=== PATIENT | female | born 1930 | race Two or more races ===

== ENCOUNTER 2017-11-07 14:27 | Emergency (ER) | payer MEDICARE, MEDICAID ==
--- NOTE | 2017-11-07 14:55 | ER Document Report ---
ED Medical Screen (RME) - General Chief Complaint: Chest Pain > 30 Stated Complaint: CHEST PAIN Time Seen by Provider: 11/07/17 14:49 Notes: RAPID MEDICAL EVALUATION DISCLOSURE I have seen this patient as part of a Rapid Medical Evaluation and, if applicable, placed any initially appropriate orders. The patient will be seen and fully evaluated, including a full history and physical exam, by a provider ( in Main ED or Fast Track) when a room becomes available. 87-year-old female here with complaints of midsternal nonradiating chest pain ongoing for the past 1 week intermittently. She has also had shortness of breath but no diaphoresis lightheadedness nausea vomiting. Symptoms are worse with lying flat but not with exertion or breathing deep. She does have a history of NM several years ago but the symptoms do not feel the same, she reports. EXAM CTAB RRR TRAVEL OUTSIDE OF THE [place] IN LAST 30 DAYS: No - Related Data Allergies/Adverse Reactions: No Known Allergies Allergy (Verified 11/07/17 14:30) Past Medical History - Social History Frequency of alcohol use: None Renal/ Medical History: Denies: Hx Peritoneal Dialysis Physical Exam - Vital signs Vitals: Temp Pulse Resp BP Pulse Ox 98.8 F 77 20 132/60 H 92 11/07/17 14:44 11/07/17 14:44 11/07/17 14:44 11/07/17 14:44 11/07/17 14:44 Course - Vital Signs Vital signs: Temp Pulse Resp BP Pulse Ox 98.8 F 77 20 132/60 H 92 11/07/17 14:44 11/07/17 14:44 11/07/17 14:44 11/07/17 14:44 11/07/17 14:44 Doctor's Discharge - Discharge Referrals: AUGUSTUS GARCES MD [Primary Care Provider] - Follow up as needed
[2017-11-07 15:35] LABS: ANION GAP 17 (5-19); BLOOD UREA NITROGEN 13 mg/dL (7-20); CALCIUM 9.5 mg/dL (8.4-10.2); CARBON DIOXIDE 24 mmol/L (22-30); CHLORIDE 91 mmol/L (98-107); GLUCOSE 108 mg/dL (75-110); POTASSIUM 3.9 mmol/L (3.6-5.0); SODIUM 131.9 mmol/L (137-145)
[2017-11-07 15:41] LABS: ABSOLUTE EOSINOPHILS # (AUTO) 0.2 10^3/uL (0.0-0.6); ABSOLUTE LYMPHOCYTES (AUTO) 1.6 10^3/uL (0.5-4.7); ABSOLUTE MONOCYTES (AUTO) 0.8 10^3/uL (0.1-1.4); ABSOLUTE NEUT (AUTO) 5.2 10^3/uL (1.7-8.2); BASOPHILS % (AUTO) 0.6 % (0-2); EOSINOPHILS % (AUTO) 2.1 % (0-6); HEMATOCRIT 40.8 % (36.0-47.0); HEMOGLOBIN 14.1 g/dL (12.0-15.5); LYMPHOCYTES % (AUTO) 20.5 % (13-45); MEAN CORPUSCULAR HEMOGLOBIN 30.7 pg (27.0-33.4); MEAN CORPUSCULAR HGB CONC 34.6 g/dL (32.0-36.0); MEAN CORPUSCULAR VOLUME 89 fl (80-97); MONOCYTES % (AUTO) 9.9 % (3-13); PLATELET COUNT 218 10^3/uL (150-450); RED CELL DISTRIBUTION WIDTH 13.2 % (11.5-14.0); SEGMENTED NEUTROPHILS % (AUTO) 66.9 % (42-78); TOTAL CELLS COUNTED % (AUTO) 100 %; WHITE BLOOD COUNT 7.8 10^3/uL (4.0-10.5)
--- NOTE | 2017-11-07 16:04 | RADIOLOGY REPORT (SQ) ---
EXAM DESCRIPTION: CHEST 2 VIEWS COMPLETED DATE/TIME: 11/07/2017 3:54 pm REASON FOR STUDY: CP SOB COMPARISON: Chest films 11/21/2010, 11/18/2010, 04/18/2008 EXAM PARAMETERS: NUMBER OF VIEWS: two views TECHNIQUE: Digital Frontal and Lateral radiographic views of the chest acquired. RADIATION DOSE: NA LIMITATIONS: none FINDINGS: LUNGS AND PLEURA: No opacities, masses or pneumothorax. No pleural effusion. MEDIASTINUM AND HILAR STRUCTURES: No masses or contour abnormalities. HEART AND VASCULAR STRUCTURES: Moderate cardiomegaly. BONES: No acute findings. HARDWARE: None in the chest. OTHER: No other significant finding. IMPRESSION: Moderate cardiomegaly. No acute findings TECHNICAL DOCUMENTATION: JOB ID: [id number] [employer]- All Rights Reserved Reading location - IP/workstation name: [email or web address]
--- NOTE | 2017-11-07 18:43 | ER Document Report ---
ED General - General Mode of Arrival: Ambulatory Information source: Patient, Relative TRAVEL OUTSIDE OF THE [place] IN LAST 30 DAYS: No <JUNIOR HANKS - Last Filed: 11/08/17 00:41> <KRISTAL SAEZ - Last Filed: 11/08/17 00:44> - General Chief Complaint: Chest Pain > 30 Stated Complaint: CHEST PAIN Time Seen by Provider: 11/07/17 14:49 Notes: Patient is an 87 year old female with HTN, diabetes type 2, high cholesterol presents to the emergency department accompanied by granddaughter complaining of chest pain. Granddaughter states the patient would frequently lie and say she is no longer in pain to avoid coming to the hospital. With JENELLE at bedside , patient states she has had chest pain for approximately 1 week but is currently not in any pain. She describes her previous chest pain as something simple that is exacerbated when supine. Granddaughter states the patient takes Prilosec daily. Patient is adamant and states she is ready to go home. Granddaughter states the patient has an appointment with Dr. Vitale on 2017. Granddaughter reports the patient has had a heart attack but patient denies this. (JUNIOR HANKS) - Related Data Allergies/Adverse Reactions: No Known Allergies Allergy (Verified 11/07/17 14:30) Past Medical History - General Information source: Patient - Social History Smoking Status: Never Smoker Frequency of alcohol use: None Family History: Reviewed & Not Pertinent Patient has suicidal ideation: No Patient has homicidal ideation: No - Past Medical History Cardiac Medical History: Reports: Hx Hypercholesterolemia, Hx Hypertension Endocrine Medical History: Reports: Hx Diabetes Mellitus Type 2 <JUNIOR HANKS - Last Filed: 11/08/17 00:41> Review of Systems - Review of Systems Constitutional: No symptoms reported EENT: No symptoms reported Cardiovascular: See HPI, Chest pain Respiratory: No symptoms reported Gastrointestinal: No symptoms reported Genitourinary: No symptoms reported Female Genitourinary: No symptoms reported Musculoskeletal: No symptoms reported Skin: No symptoms reported Hematologic/Lymphatic: No symptoms reported Neurological/Psychological: No symptoms reported -: Yes All other systems reviewed and negative <JUNIOR HANKS - Last Filed: 11/08/17 00:41> Physical Exam <JUNIOR HANKS - Last Filed: 11/08/17 00:41> <KRISTAL SAEZ - Last Filed: 11/08/17 00:44> - Vital signs Vitals: Temp Pulse Resp BP Pulse Ox 98.8 F 77 20 132/60 H 92 11/07/17 14:44 11/07/17 14:44 11/07/17 14:44 11/07/17 14:44 11/07/17 14:44 - Notes Notes: GENERAL: Alert, interacts well. No acute distress. HEAD: Normocephalic, atraumatic. EYES: Pupils equal, round, and reactive to light. Extraocular movements intact. ENT: Oral mucosa moist, tongue midline. NECK: Full range of motion. Supple. Trachea midline. LUNGS: Clear to auscultation bilaterally, no wheezes, rales, or rhonchi. No respiratory distress. HEART: Regular rate and rhythm. No murmurs, gallops, or rubs. ABDOMEN: Soft, non-tender. Non-distended. Bowel sounds present in all 4 quadrants. EXTREMITIES: Moves all 4 extremities spontaneously. No edema, radial and dorsalis pedis pulses 2/4 bilaterally. No cyanosis. NEUROLOGICAL: Alert and oriented x3. Normal speech. PSYCH: Normal affect, normal mood. SKIN: Warm, dry, normal turgor. No rashes or lesions noted. (JUNIOR HANKS) Course - Laboratory Result Diagrams: 11/07/17 15:02 11/07/17 15:02 <JUNIOR HANKS - Last Filed: 11/08/17 00:41> - Laboratory Result Diagrams: 11/07/17 15:02 11/07/17 15:02 <KRISTAL SAEZ - Last Filed: 11/08/17 00:44> - Re-evaluation Re-evalutation: 11/07/17 19:16 CBC unremarkable, CMP, BMP shows low sodium at 131.9 otherwise unremarkable, initial troponin is negative, chest x-ray shows no acute process, EKG is nonischemic. Discussed with patient and granddaughter the importance of performing a full cardiac rule out with 3 sets of troponins and a possible stress test. Patient adamantly refuses, states that she is 86 years old and feels like she is going to soon anyway, does not want to stay in the hospital. Discussed with the patient that there are various interventions that could be performed should we discover that this cardiac related but patient still refuses to stay, refuses a further blood test, refuses to have another troponin performed. And requests to be discharged home. Patient will be discharged to home. (KRISTAL SAEZ) - Vital Signs Vital signs: Temp Pulse Resp BP Pulse Ox 98.0 F 79 22 H 127/68 H 91 L 11/07/17 19:23 11/07/17 19:23 11/07/17 17:03 11/07/17 19:23 11/07/17 19:23 - Laboratory Laboratory results interpreted by me: 11/07/17 15:02 Sodium 131.9 L Chloride 91 L - EKG Interpretation by Me Additional EKG results interpreted by me: 11/07/17 19:16 EKG shows sinus rhythm at a rate of 73, first-degree AV block, no ST segment elevations or depressions, there is poor R-wave progression indicative of possible old WI 8 though patient denies this, T-wave flattening very nonspecific in V2 and V3 per my interpretation. (KRISTAL SAEZ) Discharge <JUNIOR HANKS - Last Filed: 11/08/17 00:41> <KRISTAL SAEZ - Last Filed: 11/08/17 00:44> - Discharge Clinical Impression: Chest pain of uncertain etiology Condition: Stable Disposition: HOME, SELF-CARE Additional Instructions: Today your initial blood work for heart attack was negative. Your EKG shows signs of a old heart attack in the remote past but does not show any signs of new heart attack. You have chosen not to have a second set of blood work performed to completely rule out a heart attack. You stated that you are okay with the possibility of having heart attack and the possibility of dying. Please follow-up with Dr. Vitale as an outpatient. Even though I do not see any sign of a heart attack right now it is still possible your pain is coming from your heart. There is further testing he can do as an outpatient including a stress test to help further determine whether or not any of this pain is truly coming from your heart. Referrals: AUGUSTUS GARCES MD [Primary Care Provider] - Follow up as needed Scribe Attestation: 11/08/17 00:44 I personally performed the services described in the documentation, reviewed and edited the documentation which was dictated to the scribe in my presence, and it accurately records my words and actions. (KRISTAL SAEZ) Scribe Documentation - Scribe Written by Atilio:: Atilio Block, 11/07/2017 19:10 acting as scribe for :: Gloria <JUNIOR HANKS - Last Filed: 11/08/17 00:41>
[2017-11-07 19:30] VITALS: BP 127/68
--- NOTE | 2017-11-07 22:21 | EKG REPORT ---
SEVERITY:- ABNORMAL ECG - SINUS RHYTHM FIRST DEGREE AV BLOCK BORDERLINE T ABNORMALITIES, ANTERIOR LEADS : Confirmed by: Hue Swift 07-Nov-2017 22:20:37
== END 2017-11-07 19:30 | disposition home or self-care (01) ==
LOC: ER 14:27
DX: R07.9 Chest pain, unspecified (principal); I10 Essential (primary) hypertension; E11.9 Type 2 diabetes mellitus without complications; E78.00 Pure hypercholesterolemia, unspecified
CPT/HCPCS: 36415; 71046; 80048; 84484; 85025; 93005; 93010; 99285

== ENCOUNTER → 2017-12-14 | Outpatient (CLI) | payer MEDICARE, MEDICAID ==
[~2017-12-14] MED LIST: CAFFEINE CITRATED INJ/PF 60 MG/3 ML SDV ONE; REGADENOSON INJ 0.4 MG/5 ML DISP.SYRIN IV ONE
--- NOTE | 2017-12-14 19:22 | DRAGON STRESS TEST REPORT ---
INTRAVENOUS LEXISCAN CARDIOLITE STRESS TEST USING SINGLE PHOTON EMMISION COMPUTERIZED TOMOGRAPHIC. DATE OF PROCEDURE: December 14, 2017, INDICATION : Chest pain CARDIAC RISK FACTORS: Diabetes, hypertension, dyslipidemia RESTING EKG: Sinus rhythm, left axis deviation, nonprogression of R-wave anterior precordial lead, possible RVH. STRESS EKG: No significant ST segment changes noted with LexiScan bolus REASON FOR TERMINATION: Protocol. PROCEDURE REPORT: Baseline heart rate 75 beats per minute with blood pressure of 122/68. Patient had no significant complaints. Patient was bolused with Lexiscan 0.4 mg intravenously followed by saline bolus. Heart rate at 2 minutes post bolus 86 with a blood pressure of 117/61. 3 minutes post bolus heart rate 85 with blood pressure of 113/57. No significant EKG changes were noted. Patient had no significant complaints during the procedure or postprocedure. CONCLUSIONS: Normal EKG and hemodynamic response to IV LexiScan. NUCLEAR DATA: At rest the patient was given 11.66 millicuries of technetium 99 sestamibi injected intravenously. As per protocol rest gated SPECT images were obtained. On day of stress test, the patient was given intravenous LexiScan at a dose of 0.4 mg in 5 mL intravenously, followed by flush with normal saline. Subsequently the stress dose of 34.7 millicuries of technetium 99 sestamibi was injected intravenously. As per protocol stress gated images were obtained. NUCLEAR INTERPRETATION: Both raw and processed data were used for interpretation. Visual, qualitative, computer-generated quantitative data was used. There was good myocardial uptake of technetium compound. Motion artifact and soft tissue attenuations were noted. Increased visceral uptake was noted. No definitive areas of transient perfusion defect noted, No definitive areas of fixed perfusion defect or scars noted. EKG gated imaging showed LV EF at 82 %, rest and stress gated EF similar visually. T. I D. ratio was 0.94. Lung heart ratio noted to be within normal limits 0.30. No significant extracardiac and abnormal radiotracer activities were noted. RV free wall uptake was noted to be increased.. IMPRESSION: Also refer to comments under nuclear interpretation. Also test results needs to be interpreted in the context of pretest probability. 1. No definitive areas of transient perfusion defect noted. 2. There is no definitive scintigraphic evidence of myocardial infarction/scar. 3. EKG gated imaging shows left ventricular ejection fraction of approx. 82 %. RV free wall uptake was noted to be increased consistent with RVH. 4. Clinical correlation requested as occasionally single vessel disease or balanced ischemia could be missed. In approximately 10% of the cases Lexiscan may not cause adequate vasodilatory stress. RECOMMENDATIONS: Aggressive risk factor modification and medical management. Further evaluation may be needed if continued symptoms or other high risk indicators are noted on clinical evaluation. Close cardiology follow-up is also recommended. Clinical correlation with echocardiogram derived ejection fraction. Inability to exercise by itself can lead to increased cardiovascular event risks. Consider cardiology consultation and or follow-up if clinically indicated. I am available for cardiology evaluation and consultation if requested by the branding machine tender, unless patient already has a doll wigs hackler. Dr. Tamanna Swift. MRCP Board certified in cardiology and sleep medicine. Board certified in nuclear cardiology, adult echocardiography. CARLY
== END ==
LOC: RAD 08:11
PROVIDERS: ATTEND Internal Medicine Cardiovascular Disease
DX: R07.9 Chest pain, unspecified (principal); E11.9 Type 2 diabetes mellitus without complications; I10 Essential (primary) hypertension; E78.5 Hyperlipidemia, unspecified
CPT/HCPCS: 93017; 78452; A9500; J2785; J0706; Q9969

== ENCOUNTER → 2018-06-13 | Outpatient (CLI) | payer MEDICARE, MEDICAID ==
[~2018-06-13] MED LIST changes: +AMINOPHYLLINE INJ/PF 250 MG/10 ML SDV IV ONE; -CAFFEINE CITRATED INJ/PF 60 MG/3 ML SDV ONE
--- NOTE | 2018-06-13 17:24 | DRAGON STRESS TEST REPORT ---
Intravenous Lexiscan Cardiolite stress test using single photon emmision computerized tomography. Date of procedure: 06/13/2018. Ordering Provider: Dr. Dameon Vitale .Patient's status: Outpatient Indication: Chest pain. Coronary risk factors: Age, diabetes, hypertension, and dyslipidemia. Resting EKG: Sinus Rhythm. Within Normal Limits. Stress EKG: No changes of ischemia. The patient after the injection of Lexiscan developed shortness of breath with wheezing. The patient was given Aminophyllin 50 mg IV push slowly, and subsequently another 50 mg IV Aminophyllin was repeated. After this the patient had no further shortness of breath, and no wheezing. She had no chest pain or discomfort, and there were no arrhythmias seen. She was hemodynamically stable. Reason for termination: Protocol. Conclusions: Normal EKG and hemodynamic response to IV Lexiscan. Nuclear data: At rest the patient was given 10.82 millicuries of technetium 99m sestamibi injected intravenously. As per protocol rest non gated SPECT images were obtained. Subsequently the patient was given intravenous Lexiscan at a dose of 0.4 mg in 5 mL intravenously, followed by flush with normal saline. Subsequently the stress dose of 31.8 millicuries of technetium 99m sestamibi was injected intravenously. As per protocol stress gated images were obtained. Nuclear interpretation: Review of images showed that all segments of the myocardium had normal perfusion at rest, and normal perfusion post stress with IV Lexiscan. All segments of the myocardium had normal motion, contraction, and thickening by gated study. T. I D. ratio was normal at 1.07. There is no transient ischemic dilatation of the left ventricle. Computer read rest, and stress left ventricular ejection fraction were 78 %, and 79 %, respectively. Conclusion: 1. There is no scintigraphic evidence of Lexiscan induced myocardial ischemia. 2. There is no scintigraphic evidence of myocardial infarction/scar. Recommendations: Aggressive risk factor modification, and treating the underlying co- morbidities. MTDD
== END ==
LOC: RAD 08:39
PROVIDERS: ATTEND Internal Medicine Cardiovascular Disease
DX: R07.9 Chest pain, unspecified (principal); R06.00 Dyspnea, unspecified
CPT/HCPCS: 93017; 78452; A9500; J2785; J0280; Q9969

== ENCOUNTER 2018-10-07 23:41 | Inpatient (IN) | payer MEDICARE, MEDICAID ==
[2018-10-07] MEDS ORDERED: IPRATROPIUM/ALBUTEROL 0.5-2.5 MG/3 ML AMPUL NEB ONE ×2 (23:43→23:55)
[2018-10-07] MEDS ORDERED: MAGNESIUM SULFATE/D5W 2 GM/200 ML RTUPB IV ONE (23:45)
[2018-10-07] MEDS ORDERED: METHYLPREDNISOLONE INJ 125 MG/2 ML SDV ONE (23:45)
[2018-10-07] MEDS ORDERED: METHYLPREDNISOLONE INJ 125 MG/2 ML SDV IV ONE (23:55)
[2018-10-07] MEDS ORDERED: MAGNESIUM SULFATE/D5W 1 GM/100 ML RTUPB IV ONE (23:55)
[2018-10-08] MEDS ORDERED: ACETAMINOPHEN 650 MG SUPP.RECT PR ONE (00:01)
--- NOTE | 2018-10-08 00:19 | ER Document Report ---
ED General - General Chief Complaint: Breathing Difficulty Stated Complaint: PROBLEMS BREATHING Time Seen by Provider: 10/07/18 23:53 Primary Care Provider: KI ROMERO MD [Primary Care Provider] - Follow up as needed Notes: Patient is a pleasant 87-year-old female presents with complaint of difficulty breathing. Patient's daughter says that when she got home she saw the patient was working hard to breathe and therefore brought her to the ER. She does have history of asthma. She did play bingo last night and the daughter says that people smoke a lot in the [place] and sometimes this will activate the patient's asthma. She has never been admitted to the hospital for asthma. She has not had any fevers at home. No other complaints at this time. Primary care physician is Dr. Ortiz Kim. Upon arrival to the ED her O2 saturations are initially in the mid 80s and that is with nasal cannula was placed on her as soon as she was brought back to the trauma bay. TRAVEL OUTSIDE OF THE [place] IN LAST 30 DAYS: No - Related Data Allergies/Adverse Reactions: No Known Allergies Allergy (Verified 11/07/17 14:30) Past Medical History - Social History Smoking Status: Never Smoker Frequency of alcohol use: None Drug Abuse: None Family History: Reviewed & Not Pertinent - Past Medical History Cardiac Medical History: Reports: Hx Hypercholesterolemia, Hx Hypertension Endocrine Medical History: Reports: Hx Diabetes Mellitus Type 2 Renal/ Medical History: Denies: Hx Peritoneal Dialysis Review of Systems - Review of Systems Notes: My Normal Review Basic REVIEW OF SYSTEMS: CONSTITUTIONAL : Denies fever, chills, or sweats. Denies recent illness. EENT: Denies eye, ear, throat, or mouth pain or symptoms. Denies nasal or sinus congestion. RESPIRATORY: Difficulty breathing. GASTROINTESTINAL: Denies abdominal pain. Denies nausea, vomiting, or diarrhea. GENITOURINARY: Is incontinent of urine and therefore chronically wears a adult diaper. MUSCULOSKELETAL: Denies neck or back pain or joint pain or swelling. SKIN: Denies rash or skin lesions. HEMATOLOGIC : Denies easy bruising or bleeding. NEUROLOGICAL: Denies altered mental status or loss of consciousness. ALL OTHER SYSTEMS REVIEWED AND NEGATIVE. Physical Exam - Vital signs Vitals: Resp Pulse Ox 22 H 91 L 10/07/18 23:46 10/07/18 23:46 - Notes Notes: General Appearance: Well nourished, alert, cooperative, moderate to severe acute distress, no obvious discomfort. Vitals: reviewed, See vital signs table. Eyes: PERRL, EOMI, Conjuctiva clear Mouth: No decreasd moisture Lungs: Scattered wheezing. Some rales. Significant amount of accessory muscle use. Tachypnea. Heart: tachycardiac rate, Regular rythm, No murmur, no rub Abdomen: Normal BS, soft, No rigidity, No abdominal tenderness, No guarding, no rebound Extremities: good pulses in all extremities, no swelling or tenderness in the extremities, no edema. Skin: warm, dry, appropriate color, no rash Neuro: speech clear, oriented x 3, normal affect, responds appropriately to questions. Course - Re-evaluation Re-evalutation: 10/08/18 00:58 On reevaluation patient's wheezing is now gone. She has still some rales type sounds her lung price. This likely is insurance claim representative of pneumonia. She does also have some edema in her extremities and therefore some fluid overload could play a role. I have not given her IV fluids because of this as the patient already has some signs of some fluid overload and therefore give her IV fluids will likely not be of benefit to her. Her blood pressure is normal. Her heart rate is much improved. 10/08/18 01:53 Patient's chest x-ray did not show obvious pneumonia. I still think this possibility as a cause of fever. I want to get the urinalysis results back firs t to determine exactly what antibiotic regimen start her on. Family is refusing patient to receive a straight cath therefore has not yet gotten the urine. Therefore we will go and cover her with broad-spectrum antibiotics until we see exactly what is the underlying cause of her infection. Respiratory status remains improved. 10/08/18 04:07 Patient continues look well. Respiratory status is much improved. She likely will be able to be weaned off the BiPAP soon. She does have a UTI which would explain the fever. I again did not push IV fluids on her being that her heart rate is improved, her blood pressure is normal, and she does show some signs of fluid overload and that she has some rales in the lung price as well as significant edema in her lower extremities. I did speak with Dr. Garcia, hospitalist, who agrees to evaluate the patient for admission. Dictation of this chart was performed using voice recognition software; therefore, there may be some unintended grammatical errors. - Vital Signs Vital signs: Temp Pulse Resp BP Pulse Ox 17 110/57 L 94 10/08/18 03:30 10/08/18 03:30 10/08/18 03:30 - Laboratory Result Diagrams: 10/08/18 00:10 10/08/18 00:10 Laboratory results interpreted by me: 10/08/18 10/08/18 10/08/18 00:10 00:10 00:10 WBC 14.0 H Seg Neutrophils % 86.7 H Lymphocytes % 10.8 L Monocytes % 2.2 L Absolute Neutrophils 12.1 H Sodium 130.3 L Potassium 3.5 L Chloride 91 L Glucose 177 H Lactic Acid 4.7 H Urine Protein Urine Blood Urine Nitrite Ur Leukocyte Esterase 10/08/18 02:35 WBC Seg Neutrophils % Lymphocytes % Monocytes % Absolute Neutrophils Sodium Potassium Chloride Glucose Lactic Acid Urine Protein 100 H Urine Blood MODERATE H Urine Nitrite POSITIVE H Ur Leukocyte Esterase LARGE H - EKG Interpretation by Me Additional EKG results interpreted by me: 10/08/18 00:18 EKG is reviewed and interpreted by me. EKG shows sinus tachycardia with rate of [address] segment elevation or depression. No ischemic T wave inversions. VT interval, QRS duration, QT intervals are within normal range. No old EKG available for comparison. Critical Care Note - Critical Care Note Total time excluding time spent on procedures (mins): 35 Comments: Critical care time for the patient including time spent in procedures proximal me 35 minutes due to frequent re-evaluations due to being on BiPAP, respiratory distress on initial examination, and management of high fever and potential sepsis. Discharge - Discharge Clinical Impression: Respiratory distress, Lactic acidosis UTI (urinary tract infection) Qualifiers: Urinary tract infection type: site unspecified Hematuria presence: with hematuria Qualified Code(s): N39.0 - Urinary tract infection, site not specified; R31.9 - Hematuria, unspecified Fever Qualifiers: Fever type: unspecified Qualified Code(s): R50.9 - Fever, unspecified Condition: Stable Disposition: ADMITTED INPATIENT Admitting Provider: Radha (Hospitalist) Unit Admitted: IMCU Referrals: KI ROMERO MD [Primary Care Provider] - Follow up as needed
[2018-10-08 00:31] LABS: VENOUS BLOOD BASE EXCESS 1.7 mmol/L; VENOUS BLOOD HCO3 26.5 mmol/L (20-32); VENOUS BLOOD PCO2 42.3 mmHg (35-63); VENOUS BLOOD PH 7.42 (7.30-7.42)
[2018-10-08 00:47] LABS: ABSOLUTE LYMPHOCYTES (AUTO) 1.5 10^3/uL (0.5-4.7); ABSOLUTE MONOCYTES (AUTO) 0.3 10^3/uL (0.1-1.4); ABSOLUTE NEUT (AUTO) 12.1 10^3/uL (1.7-8.2); BASOPHILS % (AUTO) 0.2 % (0-2); EOSINOPHILS % (AUTO) 0.1 % (0-6); HEMATOCRIT 36.8 % (36.0-47.0); HEMOGLOBIN 12.3 g/dL (12.0-15.5); LYMPHOCYTES % (AUTO) 10.8 % (13-45); MEAN CORPUSCULAR HGB CONC 33.4 g/dL (32.0-36.0); MEAN CORPUSCULAR VOLUME 90 fl (80-97); MONOCYTES % (AUTO) 2.2 % (3-13); PLATELET COUNT 180 10^3/uL (150-450); RED CELL DISTRIBUTION WIDTH 13.1 % (11.5-14.0); SEGMENTED NEUTROPHILS % (AUTO) 86.7 % (42-78); TOTAL CELLS COUNTED % (AUTO) 100 %
[2018-10-08 00:51] LABS: ANION GAP 14 (5-19); BLOOD UREA NITROGEN 10 mg/dL (7-20); CARBON DIOXIDE 25 mmol/L (22-30); CHLORIDE 91 mmol/L (98-107); GLUCOSE 177 mg/dL (75-110); POTASSIUM 3.5 mmol/L (3.6-5.0); SODIUM 130.3 mmol/L (137-145)
--- NOTE | 2018-10-08 01:16 | RADIOLOGY REPORT (SQ) ---
EXAM DESCRIPTION: XR CHEST 1 VIEW COMPLETED DATE/TME: 10/07/2018 23:54 CLINICAL HISTORY: 87 years, Female, dyspnea COMPARISON: 11/07/2017 chest NUMBER OF VIEWS: 1 TECHNIQUE: Portable chest LIMITATIONS: None. FINDINGS: Cardiomegaly with atheromatous change thoracic aorta. Osteopenia. No pneumothorax. Lungs are clear IMPRESSION: Cardiomegaly. Lungs are clear copyright 2011 [employer]- All Rights Reserved
[2018-10-08] MEDS ORDERED: VANCOMYCIN HCL INJ 1000 MG VIAL IV ONE (01:52)
[2018-10-08] MEDS ORDERED: PIPERACILLIN/TAZOBACTAM 4.5 GM VIAL IV ONE (01:53)
[2018-10-08] MEDS ORDERED: NICOTINE 21 MG/24 HR PATCH.TD24 TD ONE (02:30)
[2018-10-08 03:32] LABS: APPEARANCE,URINE CLOUDY; BILIRUBIN,URINE NEGATIVE (NEGATIVE); COLOR,URINE YELLOW; GLUCOSE, URINE NEGATIVE (NEGATIVE); KETONES,URINE NEGATIVE (NEGATIVE); LEUKOCYTE ESTERASE,URINE LARGE (NEGATIVE); NITRITE,URINE POSITIVE (NEGATIVE); PROTEIN,URINE 100 mg/dL (NEGATIVE); URINE SPECIFIC GRAVITY 1.011; UROBILINOGEN,URINE NEGATIVE mg/dL (<2.0)
[2018-10-08] MEDS ORDERED: POTASSI CL 20 MEQ/50 ML RIDER 20 MEQ/50 ML RTUPB IV ONE (04:11)
[2018-10-08] MEDS ORDERED: RINGERS SOLUTION,LACTATED 1,000 ML IV PRN (04:44)
[2018-10-08] MEDS ORDERED: MAG HYDROX/AL HYDROX/SIMETH SUSP 30 ML UDCUP PO PRN (04:44)
[2018-10-08] MEDS ORDERED: ONDANSETRON HCL INJ/PF 4 MG/2 ML SDV IV PRN (04:44)
[2018-10-08] MEDS ORDERED: MAGNESIUM HYDROXIDE SUSP 30 ML UDCUP PO PRN (04:44)
[2018-10-08] MEDS ORDERED: MORPHINE SULFATE 10 MG/ML INJ IV PRN (04:51)
[2018-10-08] MEDS ORDERED: DEXTROSE 50%-WATER 25 GM/50 ML DISP.SYRIN IV PRN ×2 (04:51)
[2018-10-08] MEDS ORDERED: ACETAMINOPHEN 325 MG TABLET PO PRN (04:51)
[2018-10-08] MEDS ORDERED: LEVALBUTEROL HCL NEB 0.63 MG/3 ML AMPUL NEB PRN (04:51)
[2018-10-08] MEDS ORDERED: GLUCAGON,HUMAN RECOMB 1 MG INJ IM PRN (04:51)
[2018-10-08] MEDS ORDERED: DEXTROSE 40% GEL 15 GM TUBE PO PRN ×2 (04:51)
[2018-10-08] MEDS ORDERED: MEROPENEM 1 GM VIAL IV SCH (06:00)
[2018-10-08 06:06] LABS: FREE T3 2.35 pg/mL (2.77-5.27); FREE T4 (FREE THYROXINE) 0.47 ng/dL (0.78-2.19)
[2018-10-08 06:20] LABS: ARTERIAL BLOOD BASE EXCESS 0.6 mmol/L; ARTERIAL BLOOD FIO2 45%; ARTERIAL BLOOD HCO3 24.4 mmol/L (20-24); ARTERIAL BLOOD O2 SATURATION 96.5 % (94-98); ARTERIAL BLOOD PCO2 36.7 mmHg (35-45); ARTERIAL BLOOD PH 7.44 (7.35-7.45); ARTERIAL BLOOD TOTAL CO2 25.5 mmol/L (21-25)
--- NOTE | 2018-10-08 06:23 | PDOC H&P ---
History of Present Illness Admission Date/PCP: 10/08/18 04:16 Ortiz Carl MD Patient complains of: Dyspnea History of Present Illness: ROXI PUCKETT is a 87 year old female who presented to the emergency room with acute dyspnea. She (patient speaks very little German and requests to use her daughter as an remote sensing advisor/story relator) and her daughter relate that she played bingo on the night prior to her admission and was exposed to a lot of cigarette smoke in the [place]. In the late evening hours she was discovered at home by her daughter, who is returning from work, with severe dyspnea, wheezing and markedly increased work of breathing. Her daughter subsequently brought her to the emergency room for treatment. She admits a history of asthma but has never required hospitalization for this. She denies any accompanying or associated signs or symptoms. She admits prior similar symptoms with asthma attacks but never this severe. She has not identified any additional aggravati ng or ameliorating factors for her acute dyspnea. In the emergency room she was found to have hypoxia and marked increased work of breathing and was subsequently placed on BiPAP. Her chest x-ray was negative but her urinalysis revealed severe pyuria. Patient was noted to have fever of 104.3 F and a 14,000 white blood cell count. She was subsequently admitted to the hospital for further evaluation and treatment. Past Medical History Cardiac Medical History: Reports: Hyperlipidema, Hypertension Denies: Atrial Fibrillation, Congestive Heart Failure, Coronary Artery Disease, Myocardial Infarction Pulmonary Medical History: Reports: Asthma Denies: Chronic Obstructive Pulmonary Disease (COPD), Respiratory Failure EENT Medical History: Denies: Cataracts, Ears - Hearing aids Neurological Medical History: Denies: Hemorrhagic CVA, Ischemic CVA, Multiple Sclerosis, Seizures Endocrine Medical History: Reports: Diabetes Mellitus Type 2 Denies: Diabetes Mellitus Type 1, Hyperthyroidism, Hypothyroidism Renal/ Medical History: Denies: Chronic Kidney Disease, Nephrolithiasis Malignancy Medical History: Reports: None GI Medical History: Denies: Cirrhosis, Hepatitis Musculoskeltal Medical History: Denies: Arthritis, Gout Skin Medical History: Denies: Eczema, Psoriasis Psychiatric Medical History: Denies: Alcohol Dependency, Substance Abuse, Tobacco Dependency Traumatic Medical History: Reports: None Hematology: Denies: Anemia, Bleeding Tendencies Infectious Medical History: Reports: None Past Surgical History Past Surgical History: Reports: None Social History Information Source: Patient, Relative - Daughter Lives with: Family Smoking Status: Never Smoker Frequency of Alcohol Use: None Hx Recreational Drug Use: No Drugs: None Hx Prescription Drug Abuse: No - Advance Directive Resuscitation Status: Full Code Surrogate healthcare decision maker:: Laura Brown Family History Family History: DM, Hypertension Parental Family History Reviewed: Yes Children Family History Reviewed: No Sibling(s) Family History Reviewed.: Yes Medication/Allergy Allergies/Adverse Reactions: No Known Allergies Allergy (Verified 11/07/17 14:30) Review of Systems Constitutional: ABSENT: chills, fever(s) Eyes: ABSENT: visual disturbances, other - IP Ears: ABSENT: hearing changes, other - Ear pain Nose, Mouth, and Throat: ABSENT: headache(s), mouth pain, sore throat Cardiovascular: PRESENT: as per HPI, dyspnea on exertion. ABSENT: chest pain, edema, orthropnea, palpitations Respiratory: PRESENT: dyspnea, other - Wheezing and increased work of breathing. ABSENT: cough Gastrointestinal: ABSENT: abdominal pain, constipation, diarrhea, nausea, vomiting Genitourinary: ABSENT: dysuria, hematuria Musculoskeletal: ABSENT: back pain, joint swelling, muscle weakness Integumentary: ABSENT: pruritus, rash Neurological: ABSENT: confusion, convulsions, focal weakness, memory loss, syncope Psychiatric: ABSENT: anxiety, depression Endocrine: ABSENT: cold intolerance, heat intolerance Hematologic/Lymphatic: ABSENT: easy bleeding, easy bruising Physical Exam Vital Signs: Temp Pulse Resp BP Pulse Ox 16 110/57 L 93 10/08/18 04:26 10/08/18 03:30 10/08/18 04:26 Intake & Output 10/06/18 10/07/18 10/08/18 23:59 23:59 23:59 Intake Total 100 Balance 100 Weight 70.4 kg General appearance: PRESENT: cooperative, obese, other - On BiPAP Head exam: PRESENT: atraumatic, normocephalic Eye exam: ABSENT: conjunctival injection, scleral icterus Ear exam: PRESENT: normal external ear exam. ABSENT: bleeding, drainage Mouth exam: PRESENT: dry mucosa, neck supple Neck exam: ABSENT: JVD, thyromegaly, tracheal deviation Respiratory exam: PRESENT: symmetrical, wheezes - Mild expiratory wheezes in all price, other - On BiPAP. ABSENT: rales Cardiovascular exam: PRESENT: RRR. ABSENT: clicks, gallop, rubs Pulses: PRESENT: normal radial pulses, normal dorsalis pedis pul Vascular exam: PRESENT: normal capillary refill. ABSENT: pallor GI/Abdominal exam: PRESENT: normal bowel sounds, soft Rectal exam: PRESENT: deferred Extremities exam: ABSENT: joint swelling, pedal edema Musculoskeletal exam: ABSENT: deformity, dislocation Neurological exam: PRESENT: alert, oriented to person, oriented to place, oriented to time, oriented to situation, CN II-XII grossly intact. ABSENT: motor sensory deficit Psychiatric exam: PRESENT: appropriate affect, normal mood Skin exam: PRESENT: dry, intact, warm. ABSENT: jaundice, rash, urticaria Results Laboratory Results: 10/08/18 00:10 10/08/18 00:10 10/08/18 10/08/18 10/08/18 00:10 00:10 00:10 WBC 14.0 H RBC 4.10 Hgb 12.3 Hct 36.8 MCV 90 MCH 30.0 MCHC 33.4 RDW 13.1 Plt Count 180 Seg Neutrophils % 86.7 H Lymphocytes % 10.8 L Monocytes % 2.2 L Eosinophils % 0.1 Basophils % 0.2 Absolute Neutrophils 12.1 H Absolute Lymphocytes 1.5 Absolute Monocytes 0.3 Absolute Eosinophils 0.0 Absolute Basophils 0.0 VBG pH 7.42 VBG pCO2 42.3 VBG HCO3 26.5 VBG Base Excess 1.7 Sodium 130.3 L Potassium 3.5 L Chloride 91 L Carbon Dioxide 25 Anion Gap 14 BUN 10 Creatinine 0.86 Est GFR ( Amer) > 60 Est GFR (Non-Af Amer) > 60 Glucose 177 H Lactic Acid Calcium 9.0 Urine Color Urine Appearance Urine pH Ur Specific [place] Urine Protein Urine Glucose (UA) Urine Ketones Urine Blood Urine Nitrite Ur Leukocyte Esterase Urine WBC (Auto) Urine RBC (Auto) 10/08/18 10/08/18 00:10 02:35 WBC RBC Hgb Hct MCV MCH MCHC RDW Plt Count Seg Neutrophils % Lymphocytes % Monocytes % Eosinophils % Basophils % Absolute Neutrophils Absolute Lymphocytes Absolute Monocytes Absolute Eosinophils Absolute Basophils VBG pH VBG pCO2 VBG HCO3 VBG Base Excess Sodium Potassium Chloride Carbon Dioxide Anion Gap BUN Creatinine Est GFR ( Amer) Est GFR (Non-Af Amer) Glucose Lactic Acid 4.7 H Calcium Urine Color YELLOW Urine Appearance CLOUDY Urine pH 6.0 Ur Specific [place] 1.011 Urine Protein 100 H Urine Glucose (UA) NEGATIVE Urine Ketones NEGATIVE Urine Blood MODERATE H Urine Nitrite POSITIVE H Ur Leukocyte Esterase LARGE H Urine WBC (Auto) >182 Urine RBC (Auto) 9 Impressions: Chest X-Ray 10/07/18 23:54 IMPRESSION: Cardiomegaly. Lungs are clear copyright 2011 [employer]- All Rights Reserved Assessment and Plan - Diagnosis (1) Asthma with status asthmaticus in adult Qualifiers: Asthma severity: severe Asthma persistence: persistent Qualified Code(s): J45.52 - Severe persistent asthma with status asthmaticus Is this a current diagnosis for this admission?: Yes Plan: Patient is admitted to [facility] and will be treated with an aggressive pulmonary toilet utilizing nebulized Xopenex, Atrovent and Pulmicort. She will also receive IV Solu-Medrol and supplemental oxygen via noninvasive airway pressure devices as needed. She will be monitored with daily CBCs, metabolic profiles and magnesium levels. (2) Acute respiratory failure with hypoxia Is this a current diagnosis for this admission?: Yes Plan: Patient be treated with noninvasive airway pressure support devices and supplemental oxygen as required to maintain an adequate O2 saturation. Her O2 sat will be monitored very closely in [facility]. (3) SIRS (systemic inflammatory response syndrome) Is this a current diagnosis for this admission?: Yes Plan: Patient has a fever, elevated lactic acid and an elevated white blood count and an identified source of infection (urinary tract) thus meeting Sirs criteria. She will have serial lactic acids performed as the initial level was 4.4 in the emergency room. She will be observed closely for any and all signs of sepsis. Blood cultures and a urine culture are pending at the present time. (4) Pyuria Is this a current diagnosis for this admission?: Yes Plan: Patient will be treated empirically with IV meropenem as she is considered to be possibly septic. Urine culture and blood cultures are pending. The patient's fever will be treated with Tylenol 650 mg p.o. every 4 hours as needed temperature greater than 101 F. - Time Time Spent with patient: 25-34 minutes Medications reviewed and adjusted accordingly: Yes Anticipated discharge: Home - Inpatient Certification Based on my medical assessment, after consideration of the patient's comorbi dities, presenting symptoms, or acuity I expect that the services needed warrant INPATIENT care.: Yes I certify that my determination is in accordance with my understanding of Medicare's requirements for reasonable and necessary INPATIENT services [42 CFR 412.3e].: Yes Medical Necessity: Significant Comorbidiites Make Outpatient Treatment Too Risky, Need Close Monitoring Due to Risk of Patient Decompensation, Need For IV Fluids, Need For Continuous Telemetry Monitoring, Need for Nebulizer Therapy and Monitoring of Response, Need for IV Antibiotics, Risk of Complication if Not Cared For in Hospital
--- NOTE | 2018-10-08 06:26 | ADVANCED CARE ---
- Diagnosis (1) Asthma with status asthmaticus in adult Diagnosis Current: Yes (2) Acute respiratory failure with hypoxia Diagnosis Current: Yes (3) SIRS (systemic inflammatory response syndrome) Diagnosis Current: Yes (4) Pyuria Diagnosis Current: Yes Attendance: Patient, her daughter Laura Brown and myself Resuscitation Status: Full Code Discussion: The patient wishes to be a full code for her hospital admission in the event of a cardiac arrest or respiratory arrest. The patient wishes to have Laura Brown her daughter acted as her designated surrogate medical decision maker. Care Planning Goals: 1. Patient is made a full code per her request 2. Laura Brown is entered into the medical record as the patient's designated surrogate medical decision maker. Document(s) Completed: The following changes are made to the medical record and medical orders via EMR entry: 1. Patient is made a full code per her request. 2. Laura Brown is the patient's designated surrogate medical decision maker. Time Spent: 15 minutes
--- NOTE | 2018-10-08 06:40 | EKG REPORT ---
SEVERITY:- ABNORMAL ECG - SINUS TACHYCARDIA BORDERLINE RIGHT AXIS DEVIATION NONSPECIFIC T ABNORMALITIES, ANT-LAT LEADS FIRST DEGREE AVB OLE ANTERIOR IA : Confirmed by: Nicholas Murray MD 08-Oct-2018 06:40:23
[2018-10-08] MEDS: METHYLPREDNISOLONE INJ 40 MG/1 ML SDV IV SCH ×3 (07:14→22:45)
[2018-10-08] MEDS: HEPARIN SOD (PORCINE) 5,000 UNIT/ML 1 ML SYRINGE SUBCUT SCH ×3 (07:14→22:44)
[2018-10-08] MEDS ORDERED: MEROPENEM 1 GM VIAL ONE (07:22)
[2018-10-08] MEDS: MEROPENEM 1 GM in NORMAL SALINE 50 ML IV SCH ×2 (07:42→15:20)
[2018-10-08] MEDS: LEVALBUTEROL HCL NEB 1.25 MG/3 ML AMPUL NEB SCH ×2 (08:09→16:05)
[2018-10-08] MEDS: IPRATROPIUM BROMIDE 0.02% NEB 0.5 MG/2.5 ML AMPUL NEB SCH ×2 (08:09→16:05)
[2018-10-08] MEDS: BUDESONIDE NEB 0.5 MG/2 ML AMPUL NEB SCH ×2 (08:09→20:03)
[2018-10-08] MEDS ORDERED: FAMOTIDINE INJ/PF 20 MG/2 ML SDV IV SCH (10:00)
[2018-10-08] MEDS ORDERED: DOCUSATE SODIUM 100 MG/10 ML UDC PO SCH (10:00)
[2018-10-08 12:06] LABS: ANION GAP 16 (5-19); BLOOD UREA NITROGEN 13 mg/dL (7-20); CALCIUM 9.1 mg/dL (8.4-10.2); CARBON DIOXIDE 23 mmol/L (22-30); CHLORIDE 94 mmol/L (98-107); GLUCOSE 282 mg/dL (75-110); POTASSIUM 3.4 mmol/L (3.6-5.0); SODIUM 133.1 mmol/L (137-145)
[2018-10-08] MEDS ORDERED: CEFTRIAXONE 1 GM/D5W RTU 1 GM/50 ML RTUPB IV SCH (16:00)
--- NOTE | 2018-10-08 17:08 | RADIOLOGY REPORT (SQ) ---
EXAM DESCRIPTION: KUB/ABDOMEN (SINGLE VIEW) COMPLETED DATE/TIME: 10/08/2018 4:58 pm REASON FOR STUDY: abdominal pain COMPARISON: None. NUMBER OF VIEWS: One view. TECHNIQUE: Supine radiographic image of the abdomen acquired. LIMITATIONS: None. FINDINGS: BOWEL GAS PATTERN: Normal bowel gas pattern. No dilated loops. CALCIFICATIONS: No suspicious calcifications. SOFT TISSUES: No gross mass or suggestion of organomegaly. HARDWARE: Krishnan catheter in the bladder BONES: No acute fracture. No worrisome bone lesions. OTHER: No other significant finding. IMPRESSION: NO RADIOGRAPHIC EVIDENCE FOR ACUTE ABDOMINAL DISEASE. TECHNICAL DOCUMENTATION: JOB ID: [id number] [employer]- All Rights Reserved Reading location - IP/workstation name: [email or web address]
[2018-10-08] MEDS: DOCUSATE SODIUM 100 MG CAPSULE PO SCH (17:20)
[2018-10-08] MEDS ORDERED: CEFTRIAXONE SODIUM 1,000 MG in DEXTROSE 5%-WATER 50 ML IV SCH (18:00)
[2018-10-08] MEDS ORDERED: POTASSIUM CHLORIDE 10 MEQ CAPSULE.ER PO ONE (22:00)
[2018-10-08] MEDS ORDERED: INSULIN LISPRO 100 UNIT/ML 3 ML VIAL SUBCUT ONE (22:40)
[2018-10-08] MEDS: FAMOTIDINE 20 MG TABLET PO SCH (22:45)
[2018-10-09] MEDS: IPRATROPIUM BROMIDE 0.02% NEB 0.5 MG/2.5 ML AMPUL NEB SCH ×4 (00:04→23:50)
[2018-10-09] MEDS: LEVALBUTEROL HCL NEB 1.25 MG/3 ML AMPUL NEB SCH ×4 (00:04→23:51)
[2018-10-09] MEDS: HEPARIN SOD (PORCINE) 5,000 UNIT/ML 1 ML SYRINGE SUBCUT SCH ×3 (05:54→21:31)
[2018-10-09 07:17] LABS: HEMATOCRIT 35.4 % (36.0-47.0); HEMOGLOBIN 11.9 g/dL (12.0-15.5); MEAN CORPUSCULAR HEMOGLOBIN 30.3 pg (27.0-33.4); MEAN CORPUSCULAR HGB CONC 33.7 g/dL (32.0-36.0); MEAN CORPUSCULAR VOLUME 90 fl (80-97); PLATELET COUNT 134 10^3/uL (150-450); RED BLOOD COUNT 3.93 10^6/uL (3.72-5.28); RED CELL DISTRIBUTION WIDTH 13.5 % (11.5-14.0); WHITE BLOOD COUNT 19.8 10^3/uL (4.0-10.5)
[2018-10-09 07:36] LABS: ANION GAP 9 (5-19); BLOOD UREA NITROGEN 18 mg/dL (7-20); CALCIUM 8.9 mg/dL (8.4-10.2); CARBON DIOXIDE 27 mmol/L (22-30); CHLORIDE 102 mmol/L (98-107); CHOLESTEROL 119.08 mg/dL (0-200); GLUCOSE 262 mg/dL (75-110); POTASSIUM 4.2 mmol/L (3.6-5.0); SODIUM 138.2 mmol/L (137-145); TRIGLYCERIDES 73 mg/dL (<150)
[2018-10-09 07:48] LABS: DIRECT LDL 51 mg/dL (<100)
[2018-10-09 08:27] LABS: ABSOLUTE LYMPHOCYTES# (MANUAL) 1.6 10^3/uL (0.5-4.7); ABSOLUTE MONOCYTES # (MANUAL) 0.2 10^3/uL (0.1-1.4); BASOPHILS % (MANUAL) 0 % (0-2); EOSINOPHILS % (MANUAL) 0 % (0-6); LYMPHOCYTES % (MANUAL) 5 % (13-45); MONOCYTES % (MANUAL) 1 % (3-13); SEGMENTED NEUTROPHILS % (MAN) 91 % (42-78); TOTAL CELLS COUNTED 100
[2018-10-09 08:29] LABS: PLATELET COMMENT DECREASED; RBC MORPHOLOGY COMMENT NORMO-CYTIC/CHROMIC
[2018-10-09] MEDS: INSULIN LISPRO 100 UNIT/ML 3 ML VIAL SUBCUT SCH ×4 (08:30→21:29)
[2018-10-09] MEDS: BUDESONIDE NEB 0.5 MG/2 ML AMPUL NEB SCH ×2 (08:54→20:24)
[2018-10-09] MEDS: DOCUSATE SODIUM 100 MG CAPSULE PO SCH ×2 (09:20→18:16)
[2018-10-09] MEDS: FAMOTIDINE 20 MG TABLET PO SCH ×2 (09:20→21:29)
[2018-10-09] MEDS ORDERED: GLUCAGON,HUMAN RECOMB 1 MG INJ IM PRN (10:38)
[2018-10-09] MEDS ORDERED: DEXTROSE 40% GEL 15 GM TUBE PO PRN ×2 (10:38)
[2018-10-09] MEDS ORDERED: DEXTROSE 50%-WATER 25 GM/50 ML DISP.SYRIN IV PRN ×2 (10:38)
[2018-10-09] MEDS: PIPERACILLIN SODIUM/TAZOBACTAM 3.375 GM in NORMAL SALINE 100 ML IV SCH ×3 (13:00→23:16)
[2018-10-09] MEDS: INSULIN GLARGINE,HUM.REC.ANLOG 1,000 UNIT/10 ML VIAL SUBCUT SCH (13:01)
--- NOTE | 2018-10-09 15:23 | PDOC PROGRESS REPORT ---
Subjective Progress Note for:: 10/09/18 Subjective:: ROXI PUCKETT is a 87 year old female who presented to the emergency room with acute dyspnea. She (patient speaks very little [place] and requests to use her daughter as an air moving technician/story relator) and her daughter relate that she played bingo on the night prior to her admission and was exposed to a lot of cigarette smoke [place]. In the late evening hours she was discovered at home by her daughter, who is returning from work, with severe dyspnea, whe ezing and markedly increased work of breathing. Her daughter subsequently brought her to the emergency room for treatment. She admits a history of asthma but has never required hospitalization for this. She denies any accompanying or associated signs or symptoms. She admits prior similar symptoms with asthma attacks but never this severe. She has not identified any additional aggravating or ameliorating factors for her acute dyspnea. In the emergency room she was found to have hypoxia and marked increased work of breathing and was subsequently placed on BiPAP. Her chest x-ray was negative but her urinalysis revealed severe pyuria. Patient was noted to have fever of 104.3 F and a 14,000 white blood cell count. She was subsequently admitted to the hospital for further evaluation and treatment. 10/09/2018. No acute events overnight. Reason For Visit: SIRS,UTI,STATUS ASTHMATICUS,ACUTE RESPIRATORY Physical Exam Vital Signs: Temp Pulse Resp BP Pulse Ox 97.5 F 79 18 126/63 H 95 10/09/18 11:22 10/09/18 14:00 10/09/18 11:22 10/09/18 11:22 10/09/18 11:22 Intake & Output 10/08/18 10/09/18 10/10/18 06:59 06:59 06:59 Intake Total 100 2187 Output Total 2250 Balance 100 -63 Weight 70.4 kg 69.9 kg General appearance: PRESENT: obese Head exam: PRESENT: atraumatic, normocephalic Respiratory exam: PRESENT: clear to auscultation marko. ABSENT: rales, rhonchi, wheezes Cardiovascular exam: PRESENT: RRR. ABSENT: diastolic murmur, rubs, systolic m urmur GI/Abdominal exam: PRESENT: normal bowel sounds, soft. ABSENT: distended, guarding, mass, organolmegaly, rebound, tenderness Extremities exam: PRESENT: full ROM. ABSENT: calf tenderness, clubbing, pedal edema Neurological exam: PRESENT: alert, awake, oriented to person, oriented to place, oriented to time, CN II-XII grossly intact. ABSENT: motor sensory deficit Results Laboratory Results: 10/09/18 06:15 10/09/18 06:15 10/09/18 10/09/18 06:15 06:15 WBC 19.8 H RBC 3.93 Hgb 11.9 L Hct 35.4 L MCV 90 MCH 30.3 MCHC 33.7 RDW 13.5 Plt Count 134 L Seg Neutrophils % Not Reportable Lymphocytes % Not Reportable Monocytes % Not Reportable Eosinophils % Not Reportable Basophils % Not Reportable Absolute Neutrophils Not Reportable Absolute Lymphocytes Not Reportable Absolute Monocytes Not Reportable Absolute Eosinophils Not Reportable Absolute Basophils Not Reportable Sodium 138.2 Potassium 4.2 Chloride 102 Carbon Dioxide 27 Anion Gap 9 BUN 18 Creatinine 0.68 Est GFR ( Amer) > 60 Est GFR (Non-Af Amer) > 60 Glucose 262 H Calcium 8.9 Magnesium 2.5 H Triglycerides 73 Cholesterol 119.08 LDL Cholesterol Direct 51 VLDL Cholesterol 15.0 HDL Cholesterol 60 Impressions: Chest X-Ray 10/07/18 23:54 IMPRESSION: Cardiomegaly. Lungs are clear copyright 2011 [employer]- All Rights Reserved KUB X-Ray 10/08/18 00:00 IMPRESSION: NO RADIOGRAPHIC EVIDENCE FOR ACUTE ABDOMINAL DISEASE. Assessment and Plan - Diagnosis (1) SIRS (systemic inflammatory response syndrome) Is this a current diagnosis for this admission?: Yes Plan: Improving. Likely due to UTI and gram-negative bacteremia. 10/09/2018: SBP 804106, T-max 97.5, HR 70s, RR 1820, FiO2 9195 2 L NC. WBC 19.8, hemoglobin 11.9, platelets 134, sodium 133.2, potassium 4.2, bicarb 27, creatinine 0.6, FBG 262, Day 3 IV antibiotics. Day 2 of IV Zosyn. Received 2 days of IV vancomycin. DC'd on 10/08/2018. Give 1 days of IV ceftriaxone. (2) Acute respiratory failure with hypoxia Is this a current diagnosis for this admission?: Yes Plan: Improving. Likely due to underlying SIRSs and asthma exacerbation. 09/08/2018: SBP 144992, T-max 97.5, HR 70s, RR 1820, FiO2 9195 2 L NC. Continue supplemental oxygen, duo nebs, BiPAP as needed, IV steroids, IV antibiotics, LABA/LAMA (3) UTI (urinary tract infection) Qualifiers: Urinary tract infection type: site unspecified Hematuria presence: with hematuria Qualified Code(s): N39.0 - Urinary tract infection, site not specified; R31.9 - Hematuria, unspecified Is this a current diagnosis for this admission?: Yes (4) Gram-negative bacteremia Is this a current diagnosis for this admission?: Yes Plan: Patient growing gram-negative rods in the urine and blood. Pending sensitivity. Day 3 IV antibiotics. Day 2 of IV Zosyn. Received 2 days of IV vancomycin. DC'd on 10/08/2018. Received 1 day of IV ceftriaxone. Continue empiric IV antibiotics, follow-up cultures. (5) Hyperlipidemia Is this a current diagnosis for this admission?: No Plan: Continue statins. Diet and lifestyle modification. (6) Diabetes mellitus type 2 in obese Is this a current diagnosis for this admission?: No Plan: Controlled. Hemoglobin A1c 6.9. Hold metformin. Diabetic diet, sliding scale insulin, long-acting insulin, pre- meal insulin. Adjust dosage as needed. Start metformin on discharge. Outpatient PCP follow-up. (7) CAD (coronary artery disease) Is this a current diagnosis for this admission?: No Plan: Denies any anginal pain. Continue antiplatelets, YOU, beta-blockers, statins. Outpatient PCP follow-up. (8) HTN (hypertension) Is this a current diagnosis for this admission?: No Plan: Normotensive. Initially patient came and hypotensive due to SIRS. Monitor vitals, continue ARB, beta blockers. Restart home meds gradually as needed. Adjust dose as needed. Outpatient PCP follow-up. (9) Hypothyroidism Is this a current diagnosis for this admission?: No Plan: TSH 9.45, T3 0.47, T4 2.35 Mild elevated TSH, most likely due to acute illness. Continue levothyroxine. Patient will need a TSH rechecked as outpatient in 4-6 weeks.
[2018-10-09] MEDS: CLOPIDOGREL BISULFATE 75 MG TABLET PO SCH (16:37)
[2018-10-09] MEDS: ATORVASTATIN CALCIUM 10 MG TABLET PO SCH (21:29)
[2018-10-09] MEDS ORDERED: (PENDING PHARMACY ID) (Lovastatin [Lovastatin] 40 MG) PO SCH (22:00)
[2018-10-10] MEDS: HEPARIN SOD (PORCINE) 5,000 UNIT/ML 1 ML SYRINGE SUBCUT SCH ×3 (05:37→21:33)
[2018-10-10] MEDS: LEVOTHYROXINE SODIUM 0.1 MG TABLET PO SCH (05:39)
[2018-10-10] MEDS: PIPERACILLIN SODIUM/TAZOBACTAM 3.375 GM in NORMAL SALINE 100 ML IV SCH ×4 (05:39→23:26)
[2018-10-10] MEDS ORDERED: (PENDING PHARMACY ID) (Atenolol [Tenormin] 25 MG) PO SCH (08:00)
[2018-10-10] MEDS: IPRATROPIUM BROMIDE 0.02% NEB 0.5 MG/2.5 ML AMPUL NEB SCH ×2 (08:01→16:39)
[2018-10-10] MEDS: BUDESONIDE NEB 0.5 MG/2 ML AMPUL NEB SCH ×2 (08:01→20:47)
[2018-10-10] MEDS: LEVALBUTEROL HCL NEB 1.25 MG/3 ML AMPUL NEB SCH ×2 (08:01→16:39)
[2018-10-10] MEDS: INSULIN LISPRO 100 UNIT/ML 3 ML VIAL SUBCUT SCH ×4 (08:47→21:39)
[2018-10-10] MEDS: INSULIN GLARGINE,HUM.REC.ANLOG 1,000 UNIT/10 ML VIAL SUBCUT SCH (08:47)
[2018-10-10] MEDS: ATENOLOL 50 MG TABLET PO SCH (08:53)
[2018-10-10] MEDS: PREDNISONE 20 MG TABLET PO SCH (09:44)
[2018-10-10] MEDS: CLOPIDOGREL BISULFATE 75 MG TABLET PO SCH (09:44)
[2018-10-10] MEDS: DOCUSATE SODIUM 100 MG CAPSULE PO SCH ×2 (09:44→17:09)
[2018-10-10] MEDS: FAMOTIDINE 20 MG TABLET PO SCH ×2 (09:44→21:33)
[2018-10-10] MEDS: LOSARTAN POTASSIUM 50 MG TABLET PO SCH (09:44)
[2018-10-10] MEDS ORDERED: (PENDING PHARMACY ID) (Irbesartan [Avapro] 150 MG) PO SCH (10:00)
[2018-10-10 10:03] LABS: HEMATOCRIT 36.4 % (36.0-47.0); HEMOGLOBIN 12.3 g/dL (12.0-15.5); MEAN CORPUSCULAR HEMOGLOBIN 30.2 pg (27.0-33.4); MEAN CORPUSCULAR HGB CONC 33.7 g/dL (32.0-36.0); MEAN CORPUSCULAR VOLUME 90 fl (80-97); PLATELET COUNT 150 10^3/uL (150-450); RED BLOOD COUNT 4.05 10^6/uL (3.72-5.28); RED CELL DISTRIBUTION WIDTH 13.5 % (11.5-14.0); WHITE BLOOD COUNT 14.4 10^3/uL (4.0-10.5)
[2018-10-10 10:19] LABS: ABSOLUTE LYMPHOCYTES# (MANUAL) 1.3 10^3/uL (0.5-4.7); ABSOLUTE MONOCYTES # (MANUAL) 0.1 10^3/uL (0.1-1.4); BASOPHILS % (MANUAL) 0 % (0-2); EOSINOPHILS % (MANUAL) 0 % (0-6); LYMPHOCYTES % (MANUAL) 9 % (13-45); MONOCYTES % (MANUAL) 1 % (3-13); SEGMENTED NEUTROPHILS % (MAN) 90 % (42-78); TOTAL CELLS COUNTED 100
[2018-10-10 10:22] LABS: PLATELET COMMENT ADEQUATE; RBC MORPHOLOGY COMMENT NORMO-CYTIC/CHROMIC
[2018-10-10 10:28] LABS: ANION GAP 7 (5-19); BLOOD UREA NITROGEN 17 mg/dL (7-20); CALCIUM 9.1 mg/dL (8.4-10.2); CARBON DIOXIDE 29 mmol/L (22-30); CHLORIDE 101 mmol/L (98-107); GLUCOSE 245 mg/dL (75-110); POTASSIUM 3.7 mmol/L (3.6-5.0)
--- NOTE | 2018-10-10 16:45 | PDOC PROGRESS REPORT ---
Subjective Progress Note for:: 10/10/18 Subjective:: ROXI PUCKETT is a 87 year old female who presented to the emergency room with acute dyspnea. She (patient speaks very little Cymraes and requests to use her daughter as an underground roof bolter/story relator) and her daughter relate that she played bingo on the night prior to her admission and was exposed to a lot of cigarette smoke in the [place]. In the late evening hours she was discovered at home by her daughter, who is returning from work, with severe dyspnea, whe ezing and markedly increased work of breathing. Her daughter subsequently brought her to the emergency room for treatment. She admits a history of asthma but has never required hospitalization for this. She denies any accompanying or associated signs or symptoms. She admits prior similar symptoms with asthma attacks but never this severe. She has not identified any additional aggravating or ameliorating factors for her acute dyspnea. In the emergency room she was found to have hypoxia and marked increased work of breathing and was subsequently placed on BiPAP. Her chest x-ray was negative but her urinalysis revealed severe pyuria. Patient was noted to have fever of 104.3 F and a 14,000 white blood cell count. She was subsequently admitted to the hospital for further evaluation and treatment. No acute events overnight. Reason For Visit: SIRS,UTI,STATUS ASTHMATICUS,ACUTE RESPIRATORY Physical Exam Vital Signs: Temp Pulse Resp BP Pulse Ox 97.5 F 64 16 131/67 H 90 L 10/10/18 15:50 10/10/18 15:50 10/10/18 15:50 10/10/18 15:50 10/10/18 15:50 Intake & Output 10/09/18 10/10/18 10/11/18 06:59 06:59 06:59 Intake Total 2187 1440 366 Output Total 2250 4135 1075 Balance -85 -405 -016 Weight 69.9 kg 70.1 kg General appearance: PRESENT: no acute distress, well-developed, well-nourished Head exam: PRESENT: atraumatic, normocephalic Neck exam: ABSENT: carotid bruit, JVD, lymphadenopathy, thyromegaly Respiratory exam: PRESENT: clear to auscultation marko. ABSENT: rales, rhonchi, wheezes GI/Abdominal exam: PRESENT: normal bowel sounds, soft. ABSENT: distended, guarding, mass, organolmegaly, rebound, tenderness Extremities exam: PRESENT: full ROM. ABSENT: calf tenderness, clubbing, pedal edema Neurological exam: PRESENT: alert, awake, oriented to person, oriented to place, oriented to time, CN II-XII grossly intact. ABSENT: motor sensory deficit Results Laboratory Results: 10/10/18 09:45 10/10/18 09:45 10/10/18 10/10/18 09:45 09:45 WBC 14.4 H RBC 4.05 Hgb 12.3 Hct 36.4 MCV 90 MCH 30.2 MCHC 33.7 RDW 13.5 Plt Count 150 Seg Neutrophils % Not Reportable Lymphocytes % Not Reportable Monocytes % Not Reportable Eosinophils % Not Reportable Basophils % Not Reportable Absolute Neutrophils Not Reportable Absolute Lymphocytes Not Reportable Absolute Monocytes Not Reportable Absolute Eosinophils Not Reportable Absolute Basophils Not Reportable Sodium 137.0 Potassium 3.7 Chloride 101 Carbon Dioxide 29 Anion Gap 7 BUN 17 Creatinine 0.76 Est GFR ( Amer) > 60 Est GFR (Non-Af Amer) > 60 Glucose 245 H Calcium 9.1 Magnesium 2.3 10/08/18 02:35 Catheterized Urine Urine Culture - Final Escherichia Coli 10/08/18 01:52 Blood Blood Culture - Final Escherichia Coli 10/08/18 00:10 Blood Blood Culture - Final Escherichia Coli Impressions: Chest X-Ray 10/07/18 23:54 IMPRESSION: Cardiomegaly. Lungs are clear copyright 2011 [employer]- All Rights Reserved KUB X-Ray 10/08/18 00:00 IMPRESSION: NO RADIOGRAPHIC EVIDENCE FOR ACUTE ABDOMINAL DISEASE. Assessment and Plan - Diagnosis (1) SIRS (systemic inflammatory response syndrome) Is this a current diagnosis for this admission?: Yes Plan: Improving. Likely due to UTI and gram-negative bacteremia. Urine and blood culture positive for E. coli pansensitive. Blood cultures pending. Will discharge with switching to p.o. antibiotic tomorrow. 10/10/2018. SBP 137825, T-max 97.5, pulse 60s, RR 1620, SPO2 8893 1 L NC. WBC 14.4 hemoglobin 12.3, platelets 150, 10/09/2018: SBP 744512, T-max 97.5, HR 70s, RR 1820, FiO2 9195 2 L NC. WBC 19.8, hemoglobin 11.9, platelets 134, sodium 133.2, potassium 4.2, bicarb 27, creatinine 0.6, FBG 262, Day 4 IV antibiotics. Day 3 of IV Zosyn. Received 2 days of IV vancomycin. DC'd on 10/08/2018. Received 1 day of IV ceftriaxone. (2) Acute respiratory failure with hypoxia Is this a current diagnosis for this admission?: Yes Plan: Improving. Likely due to underlying SIRSs and asthma exacerbation. 10/10/2018: SBP 58238, T-max 98.3, HR 736583, RR 1220, SPO2 97% RA. 10/09/2018: SBP 646535, T-max 97.5, HR 70s, RR 1820, FiO2 9195 2 L NC. Continue supplemental oxygen, duo nebs, BiPAP as needed, IV steroids, IV antibiotics, LABA/LAMA (3) UTI (urinary tract infection) Qualifiers: Urinary tract infection type: site unspecified Hematuria presence: with hematuria Qualified Code(s): N39.0 - Urinary tract infection, site not specified; R31.9 - Hematuria, unspecified Is this a current diagnosis for this admission?: Yes Plan: Due to E. coli pansensitive. Day 4 IV antibiotics. Day 3 of IV Zosyn. Received 2 days of IV vancomycin. DC'd on 10/08/2018. Received 1 day of IV ceftriaxone. (4) Gram-negative bacteremia Is this a current diagnosis for this admission?: Yes Plan: Blood and urine culture positive for E. coli pansensitive. Repeat blood culture pending. Possible DC home tomorrow. Day 4 IV antibiotics. Day 3 of IV Zosyn. Received 2 days of IV vancomycin. DC'd on 10/08/2018. Received 1 day of IV ceftriaxone. Continue empiric IV antibiotics, follow-up cultures. (5) Hyperlipidemia Is this a current diagnosis for this admission?: No Plan: Continue statins. Diet and lifestyle modification. 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 Hemoglobin A1c 6.9. Hold metformin. Diabetic diet, sliding scale insulin, long-acting insulin, pre- meal insulin. Adjust dosage as needed. Start metformin on discharge. Outpatient PCP follow-up. (7) CAD (coronary artery disease) Is this a current diagnosis for this admission?: No Plan: Denies any anginal pain. Continue antiplatelets, YOU, beta-blockers, statins. Outpatient PCP follow-up. (8) HTN (hypertension) Is this a current diagnosis for this admission?: No Plan: Normotensive. Initially patient came and hypotensive due to SIRS. Monitor vitals, continue ARB, beta blockers. Restart home meds gradually as needed. Adjust dose as needed. Outpatient PCP follow-up. (9) Hypothyroidism Is this a current diagnosis for this admission?: No Plan: TSH 9.45, T3 0.47, T4 2.35 Mild elevated TSH, most likely due to acute illness. Continue levothyroxine. Patient will need a TSH rechecked as outpatient in 4-6 weeks.
[2018-10-10] MEDS: ATORVASTATIN CALCIUM 10 MG TABLET PO SCH (21:33)
[2018-10-11] MEDS: IPRATROPIUM BROMIDE 0.02% NEB 0.5 MG/2.5 ML AMPUL NEB SCH ×3 (00:26→16:10)
[2018-10-11] MEDS: LEVALBUTEROL HCL NEB 1.25 MG/3 ML AMPUL NEB SCH ×3 (00:26→16:10)
[2018-10-11] MEDS: HEPARIN SOD (PORCINE) 5,000 UNIT/ML 1 ML SYRINGE SUBCUT SCH ×3 (05:35→21:12)
[2018-10-11] MEDS: PIPERACILLIN SODIUM/TAZOBACTAM 3.375 GM in NORMAL SALINE 100 ML IV SCH (05:37)
[2018-10-11] MEDS: LEVOTHYROXINE SODIUM 0.1 MG TABLET PO SCH (05:38)
[2018-10-11 06:32] LABS: ABSOLUTE LYMPHOCYTES (AUTO) 0.8 10^3/uL (0.5-4.7); ABSOLUTE MONOCYTES (AUTO) 0.7 10^3/uL (0.1-1.4); ABSOLUTE NEUT (AUTO) 6.9 10^3/uL (1.7-8.2); BASOPHILS % (AUTO) 0.1 % (0-2); HEMATOCRIT 36.3 % (36.0-47.0); HEMOGLOBIN 12.2 g/dL (12.0-15.5); MEAN CORPUSCULAR HEMOGLOBIN 30.2 pg (27.0-33.4); MEAN CORPUSCULAR HGB CONC 33.6 g/dL (32.0-36.0); MEAN CORPUSCULAR VOLUME 90 fl (80-97); MONOCYTES % (AUTO) 8.3 % (3-13); PLATELET COUNT 157 10^3/uL (150-450); RED BLOOD COUNT 4.05 10^6/uL (3.72-5.28); RED CELL DISTRIBUTION WIDTH 13.7 % (11.5-14.0); SEGMENTED NEUTROPHILS % (AUTO) 82.6 % (42-78); TOTAL CELLS COUNTED % (AUTO) 100 %; WHITE BLOOD COUNT 8.4 10^3/uL (4.0-10.5)
[2018-10-11 06:53] LABS: ANION GAP 10 (5-19); BLOOD UREA NITROGEN 18 mg/dL (7-20); CALCIUM 8.5 mg/dL (8.4-10.2); CARBON DIOXIDE 27 mmol/L (22-30); CHLORIDE 101 mmol/L (98-107); GLUCOSE 249 mg/dL (75-110); POTASSIUM 3.9 mmol/L (3.6-5.0)
[2018-10-11] MEDS: INSULIN GLARGINE,HUM.REC.ANLOG 1,000 UNIT/10 ML VIAL SUBCUT SCH (08:00)
[2018-10-11] MEDS: ATENOLOL 50 MG TABLET PO SCH (08:00)
[2018-10-11] MEDS: INSULIN LISPRO 100 UNIT/ML 3 ML VIAL SUBCUT SCH ×4 (08:00→22:08)
[2018-10-11] MEDS: BUDESONIDE NEB 0.5 MG/2 ML AMPUL NEB SCH ×2 (09:04→20:16)
[2018-10-11] MEDS: PREDNISONE 20 MG TABLET PO SCH (09:47)
[2018-10-11] MEDS: FAMOTIDINE 20 MG TABLET PO SCH ×2 (09:47→22:08)
[2018-10-11] MEDS: CLOPIDOGREL BISULFATE 75 MG TABLET PO SCH (09:47)
[2018-10-11] MEDS: LOSARTAN POTASSIUM 50 MG TABLET PO SCH (09:48)
[2018-10-11] MEDS: DOCUSATE SODIUM 100 MG CAPSULE PO SCH ×2 (09:48→17:24)
--- NOTE | 2018-10-11 19:15 | PDOC PROGRESS REPORT ---
Subjective Progress Note for:: 10/11/18 Subjective:: ROXI PUCKETT is a 87 year old female who presented to the emergency room with acute dyspnea. She (patient speaks very little Bahamian and requests to use her daughter as an inside sales advertising executive/story relator) and her daughter relate that she played bingo on the night prior to her admission and was exposed to a lot of cigarette smoke in [place]. In the late evening hours she was discovered at home by her daughter, who is returning from work, with severe dyspnea, whe ezing and markedly increased work of breathing. Her daughter subsequently brought her to the emergency room for treatment. She admits a history of asthma but has never required hospitalization for this. She denies any accompanying or associated signs or symptoms. She admits prior similar symptoms with asthma attacks but never this severe. She has not identified any additional aggravating or ameliorating factors for her acute dyspnea. In the emergency room she was found to have hypoxia and marked increased work of breathing and was subsequently placed on BiPAP. Her chest x-ray was negative but her urinalysis revealed severe pyuria. Patient was noted to have fever of 104.3 F and a 14,000 white blood cell count. She was subsequently admitted to the hospital for further evaluation and treatment. No acute events overnight. Patient was going to be discharged home however she requires oxygen which could not be provided due to patient not qualified. Patient is p.o. tolerant, having normal bowel and bladder movements, denies any fever, chills, nausea, vomiting, diarrhea, constipation. Reason For Visit: SIRS,UTI,STATUS ASTHMATICUS,ACUTE RESPIRATORY Physical Exam Vital Signs: Temp Pulse Resp BP Pulse Ox 97.7 F 64 17 150/73 H 92 10/11/18 12:39 10/11/18 14:00 10/11/18 12:39 10/11/18 11:53 10/11/18 12:39 Intake & Output 10/10/18 10/11/18 10/12/18 06:59 06:59 06:59 Intake Total 1440 1006 Output Total 7273 2565 Balance -335 -1617 Weight 70.1 kg 69.9 kg General appearance: PRESENT: no acute distress, well-developed, well-nourished Head exam: PRESENT: atraumatic, normocephalic Eye exam: PRESENT: conjunctiva pink, EOMI, PERRLA. ABSENT: scleral icterus Ear exam: PRESENT: normal external ear exam Mouth exam: PRESENT: moist, tongue midline Neck exam: ABSENT: carotid bruit, JVD, lymphadenopathy, thyromegaly Respiratory exam: PRESENT: clear to auscultation marko. ABSENT: rales, rhonchi, wheezes Cardiovascular exam: PRESENT: RRR. ABSENT: diastolic murmur, rubs, systolic murmur Pulses: PRESENT: normal dorsalis pedis pul Vascular exam: PRESENT: normal capillary refill GI/Abdominal exam: PRESENT: normal bowel sounds, soft. ABSENT: distended, guarding, mass, organolmegaly, rebound, tenderness Rectal exam: PRESENT: deferred Extremities exam: PRESENT: full ROM. ABSENT: calf tenderness, clubbing, pedal edema Neurological exam: PRESENT: alert, awake, oriented to person, oriented to place, oriented to time, oriented to situation, CN II-XII grossly intact. ABSENT: motor sensory deficit Psychiatric exam: PRESENT: appropriate affect, normal mood. ABSENT: homicidal ideation, suicidal ideation Skin exam: PRESENT: dry, intact, warm. ABSENT: cyanosis, rash Results Laboratory Results: 10/11/18 06:07 10/11/18 06:07 10/11/18 10/11/18 06:07 06:07 WBC 8.4 RBC 4.05 Hgb 12.2 Hct 36.3 MCV 90 MCH 30.2 MCHC 33.6 RDW 13.7 Plt Count 157 Seg Neutrophils % 82.6 H Lymphocytes % 9.0 L Monocytes % 8.3 Eosinophils % 0.0 Basophils % 0.1 Absolute Neutrophils 6.9 Absolute Lymphocytes 0.8 Absolute Monocytes 0.7 Absolute Eosinophils 0.0 Absolute Basophils 0.0 Sodium 138.0 Potassium 3.9 Chloride 101 Carbon Dioxide 27 Anion Gap 10 BUN 18 Creatinine 0.76 Est GFR ( Amer) > 60 Est GFR (Non-Af Amer) > 60 Glucose 249 H Calcium 8.5 Magnesium 2.3 Impressions: Chest X-Ray 10/07/18 23:54 IMPRESSION: Cardiomegaly. Lungs are clear copyright 2011 [employer]- All Rights Reserved KUB X-Ray 10/08/18 00:00 IMPRESSION: NO RADIOGRAPHIC EVIDENCE FOR ACUTE ABDOMINAL DISEASE. Assessment and Plan - Diagnosis (1) SIRS (systemic inflammatory response syndrome) Is this a current diagnosis for this admission?: Yes Plan: Resolved. Likely due to UTI and gram-negative bacteremia. Urine and blood culture positive for E. coli pansensitive. Blood cultures pending. Will discharge with switching to p.o. antibiotic tomorrow. 10/10/2018. SBP 201310, T-max 97.5, pulse 60s, RR 1620, SPO2 8893 1 L NC. WBC 14.4 hemoglobin 12.3, platelets 150, 10/09/2018: SBP 809708, T-max 97.5, HR 70s, RR 1820, FiO2 9195 2 L NC. WBC 19.8, hemoglobin 11.9, platelets 134, sodium 133.2, potassium 4.2, bicarb 27, creatinine 0.6, FBG 262, Day 4 IV antibiotics. Day 3 of IV Zosyn. Received 2 days of IV vancomycin. DC'd on 10/08/2018. Received 1 day of IV ceftriaxone. (2) Acute respiratory failure with hypoxia Is this a current diagnosis for this admission?: Yes Plan: Improving. Likely due to underlying SIRSs and asthma exacerbation. Patient is still dependent on supplemental PO2. Drops to 88 on exertion. 10/10/2018: SBP 70602, T-max 98.3, HR 025997, RR 1220, SPO2 97% RA. 10/09/2018: SBP 543092, T-max 97.5, HR 70s, RR 1820, FiO2 9195 2 L NC. Continue supplemental oxygen, duo nebs, BiPAP as needed, IV steroids, IV antibiotics, LABA/LAMA (3) UTI (urinary tract infection) Qualifiers: Urinary tract infection type: site unspecified Hematuria presence: with hematuria Qualified Code(s): N39.0 - Urinary tract infection, site not specified; R31.9 - Hematuria, unspecified Is this a current diagnosis for this admission?: Yes Plan: Due to E. coli pansensitive. Antibiotic day 09/27 Day 2 of Macrobid. Day 4 IV antibiotics. Day 3 of IV Zosyn. Received 2 days of IV vancomycin. DC'd on 10/08/2018. Received 1 day of IV ceftriaxone. (4) Gram-negative bacteremia Is this a current diagnosis for this admission?: Yes Plan: Blood and urine culture positive for E. coli pansensitive. Repeat blood culture pending. Possible DC home tomorrow. Day 4 IV antibiotics. Day 3 of IV Zosyn. Received 2 days of IV vancomycin. DC'd on 10/08/2018. Received 1 day of IV ceftriaxone. Continue empiric IV antibiotics, follow-up cultures. (5) Hyperlipidemia Is this a current diagnosis for this admission?: No Plan: Continue statins. Diet and lifestyle modification. 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 Hemoglobin A1c 6.9. Hold metformin. Diabetic diet, sliding scale insulin, long-acting insulin, pre- meal insulin. Adjust dosage as needed. Start metformin on discharge. Outpatient PCP follow-up. (7) CAD (coronary artery disease) Is this a current diagnosis for this admission?: No Plan: Denies any anginal pain. Continue antiplatelets, YOU, beta-blockers, statins. Outpatient PCP follow-up. (8) HTN (hypertension) Is this a current diagnosis for this admission?: No Plan: Normotensive. Initially patient came and hypotensive due to SIRS. Monitor vitals, continue ARB, beta blockers. Restart home meds gradually as needed. Adjust dose as needed. Outpatient PCP follow-up. (9) Hypothyroidism Is this a current diagnosis for this admission?: No Plan: TSH 9.45, T3 0.47, T4 2.35 Mild elevated TSH, most likely due to acute illness. Continue levothyroxine. Patient will need a TSH rechecked as outpatient in 4-6 weeks.
[2018-10-11] MEDS: ATORVASTATIN CALCIUM 10 MG TABLET PO SCH (22:08)
[2018-10-12] MEDS: LEVALBUTEROL HCL NEB 1.25 MG/3 ML AMPUL NEB SCH ×4 (00:15→23:36)
[2018-10-12] MEDS: IPRATROPIUM BROMIDE 0.02% NEB 0.5 MG/2.5 ML AMPUL NEB SCH ×4 (00:15→23:36)
[2018-10-12] MEDS: LEVOTHYROXINE SODIUM 0.1 MG TABLET PO SCH (05:55)
[2018-10-12] MEDS: HEPARIN SOD (PORCINE) 5,000 UNIT/ML 1 ML SYRINGE SUBCUT SCH ×3 (05:55→22:08)
[2018-10-12] MEDS: INSULIN LISPRO 100 UNIT/ML 3 ML VIAL SUBCUT SCH ×4 (08:19→22:10)
[2018-10-12] MEDS: HYDROCHLOROTHIAZIDE 12.5 MG TABLET PO SCH (08:22)
[2018-10-12] MEDS: ATENOLOL 50 MG TABLET PO SCH (08:22)
[2018-10-12] MEDS: INSULIN GLARGINE,HUM.REC.ANLOG 1,000 UNIT/10 ML VIAL SUBCUT SCH (08:23)
[2018-10-12] MEDS: LOSARTAN POTASSIUM 50 MG TABLET PO SCH (09:29)
[2018-10-12] MEDS: PREDNISONE 20 MG TABLET PO SCH (09:30)
[2018-10-12] MEDS: FAMOTIDINE 20 MG TABLET PO SCH ×2 (09:30→22:10)
[2018-10-12] MEDS: CLOPIDOGREL BISULFATE 75 MG TABLET PO SCH (09:30)
[2018-10-12] MEDS: DOCUSATE SODIUM 100 MG CAPSULE PO SCH ×2 (09:30→17:18)
[2018-10-12] MEDS: BUDESONIDE NEB 0.5 MG/2 ML AMPUL NEB SCH ×2 (09:31→20:58)
[2018-10-12] MEDS ORDERED: NITROFURANTOIN MONOHYD/M-CRYST 100 MG CAPSULE PO SCH (11:00)
--- NOTE | 2018-10-12 15:05 | PDOC PROGRESS REPORT ---
Subjective Progress Note for:: 10/12/18 Subjective:: ROXI PUCKETT is a 87 year old female who presented to the emergency room with acute dyspnea. She (patient speaks very little Kenyan and requests to use her daughter as an diplomatic interpreter/translator/story relator) and her daughter relate that she played bingo on the night prior to her admission and was exposed to a lot of cigarette smoke in [place]. In the late evening hours she was discovered at home by her daughter, who is returning from work, with severe dyspnea, whe ezing and markedly increased work of breathing. Her daughter subsequently brought her to the emergency room for treatment. She admits a history of asthma but has never required hospitalization for this. She denies any accompanying or associated signs or symptoms. She admits prior similar symptoms with asthma attacks but never this severe. She has not identified any additional aggravating or ameliorating factors for her acute dyspnea. In the emergency room she was found to have hypoxia and marked increased work of breathing and was subsequently placed on BiPAP. Her chest x-ray was negative but her urinalysis revealed severe pyuria. Patient was noted to have fever of 104.3 F and a 14,000 white blood cell count. She was subsequently admitted to the hospital for further evaluation and treatment. No acute events overnight. Patient is ready to be discharged but needs home O2 as she drops to 88 on RA. Patient is p.o. tolerant, having normal bowel and bladder movements, denies any fever, chills, nausea, vomiting, diarrhea, constipation. Reason For Visit: SIRS,UTI,STATUS ASTHMATICUS,ACUTE RESPIRATORY Physical Exam Vital Signs: Temp Pulse Resp BP Pulse Ox 97.4 F 57 L 16 146/70 H 90 L 10/12/18 07:45 10/12/18 07:45 10/12/18 07:45 10/12/18 07:45 10/12/18 07:45 Intake & Output 10/11/18 10/12/18 10/13/18 06:59 06:59 06:59 Intake Total 1006 1050 Output Total 2625 Balance -1619 1050 Weight 69.9 kg 68.8 kg General appearance: PRESENT: no acute distress, well-developed, well-nourished Head exam: PRESENT: atraumatic, normocephalic Respiratory exam: PRESENT: clear to auscultation mrako. ABSENT: rales, rhonchi, wheezes Cardiovascular exam: PRESENT: RRR. ABSENT: diastolic murmur, rubs, systolic murmur GI/Abdominal exam: PRESENT: normal bowel sounds, soft. ABSENT: distended, guarding, mass, organolmegaly, rebound, tenderness Extremities exam: PRESENT: full ROM. ABSENT: calf tenderness, clubbing, pedal edema Neurological exam: PRESENT: alert, awake, oriented to person, oriented to place, oriented to time, oriented to situation, CN II-XII grossly intact. ABSENT: motor sensory deficit Results Laboratory Results: 10/11/18 06:07 10/11/18 06:07 Impressions: Chest X-Ray 10/07/18 23:54 IMPRESSION: Cardiomegaly. Lungs are clear copyright 2011 [employer]- All Rights Reserved KUB X-Ray 10/08/18 00:00 IMPRESSION: NO RADIOGRAPHIC EVIDENCE FOR ACUTE ABDOMINAL DISEASE. Assessment and Plan - Diagnosis (1) Acute respiratory failure with hypoxia Is this a current diagnosis for this admission?: Yes Plan: Improved, pt still dependent on supplemental Oxygen. She drops to 88% on RA. Likely due to underlying SIRSs and asthma exacerbation. 10/10/2018: SBP 26632, T-max 98.3, HR 426393, RR 1220, SPO2 97% RA. 10/09/2018: SBP 045338, T-max 97.5, HR 70s, RR 1820, FiO2 9195 2 L NC. Continue supplemental oxygen, duo nebs, BiPAP as needed, IV steroids, IV antibiotics, LABA/LAMA (2) SIRS (systemic inflammatory response syndrome) Is this a current diagnosis for this admission?: Yes Plan: Resolved. This was likely due to UTI and gram-negative bacteremia. Urine and blood culture positive for E. coli pansensitive. Blood cultures pending. 10/10/2018. SBP 013289, T-max 97.5, pulse 60s, RR 1620, SPO2 8893 1 L NC. WBC 14.4 hemoglobin 12.3, platelets 150, 10/09/2018: SBP 767473, T-max 97.5, HR 70s, RR 1820, FiO2 9195 2 L NC. WBC 19.8, hemoglobin 11.9, platelets 134 Switched to Macrobid 10/11/2018. Antibiotics Day 09/27. Received 4 of IV Zosyn. Received 2 days of IV vancomycin. DC'd on 10/08/2018. Received 1 day of IV ceftriaxone. (3) UTI (urinary tract infection) Qualifiers: Urinary tract infection type: site unspecified Hematuria presence: with hematuria Qualified Code(s): N39.0 - Urinary tract infection, site not specified; R31.9 - Hematuria, unspecified Is this a current diagnosis for this admission?: Yes Plan: Due to E. coli pansensitive. Antibiotics day /7. Switch back to ceftriaxone IV for 2 more days as patient has E. coli bacteremia resistant to fluoroquinolones and Bactrim. Received 1 day of Macrobid. Received 4 days 4 of IV Zosyn. DC'd 10/11/2018. Received 2 days of IV vancomycin. DC'd on 10/08/2018. Received 1 day of IV ceftriaxone. (4) Gram-negative bacteremia Is this a current diagnosis for this admission?: Yes Plan: Blood and urine culture positive for E. coli pansensitive. Repeat blood culture negative. Antibiotics day /. Switch back to ceftriaxone IV for 2 more days as patient has E. coli bacteremia resistant to fluoroquinolones and Bactrim. Received 1 day of Macrobid. Received 4 days 4 of IV Zosyn. DC'd 10/11/2018. Received 2 days of IV vancomycin. DC'd on 10/08/2018. Received 1 day of IV ceftriaxone. (5) Hyperlipidemia Is this a current diagnosis for this admission?: No Plan: Continue statins. Diet and lifestyle modification. 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 Hemoglobin A1c 6.9. Hold metformin. Diabetic diet, sliding scale insulin, long-acting insulin, pre- meal insulin. Adjust dosage as needed. Start metformin on discharge. Outpatient PCP follow-up. (7) CAD (coronary artery disease) Is this a current diagnosis for this admission?: No Plan: Denies any anginal pain. Continue antiplatelets, YOU, beta-blockers, statins. Outpatient PCP follow-up. (8) HTN (hypertension) Is this a current diagnosis for this admission?: No Plan: Normotensive. Initially patient came and hypotensive due to SIRS. Monitor vitals, continue ARB, beta blockers. Restart home meds gradually as needed. Adjust dose as needed. Outpatient PCP follow-up. (9) Hypothyroidism Is this a current diagnosis for this admission?: No Plan: TSH 9.45, T3 0.47, T4 2.35 Mild elevated TSH, most likely due to acute illness. Continue levothyroxine. Patient will need a TSH rechecked as outpatient in 4-6 weeks.
[2018-10-12] MEDS ORDERED: CEFTRIAXONE 1 GM/D5W RTU 1 GM/50 ML RTUPB IV SCH (15:30)
[2018-10-12] MEDS ORDERED: CEFTRIAXONE SODIUM 1,000 MG in DEXTROSE 5%-WATER 50 ML IV SCH (16:00)
[2018-10-12] MEDS ORDERED: AMLODIPINE BESYLATE 5 MG TABLET PO SCH (18:00)
[2018-10-12] MEDS ORDERED: AMLODIPINE BESYLATE 10 MG TABLET PO SCH (18:00)
[2018-10-12] MEDS: ATORVASTATIN CALCIUM 10 MG TABLET PO SCH (22:10)
[2018-10-13] MEDS: LEVOTHYROXINE SODIUM 0.1 MG TABLET PO SCH (06:02)
[2018-10-13] MEDS: HEPARIN SOD (PORCINE) 5,000 UNIT/ML 1 ML SYRINGE SUBCUT SCH (06:02)
[2018-10-13] MEDS: INSULIN LISPRO 100 UNIT/ML 3 ML VIAL SUBCUT SCH ×2 (07:42→11:43)
[2018-10-13] MEDS: ATENOLOL 50 MG TABLET PO SCH (08:27)
[2018-10-13] MEDS: HYDROCHLOROTHIAZIDE 12.5 MG TABLET PO SCH (08:27)
[2018-10-13] MEDS: INSULIN GLARGINE,HUM.REC.ANLOG 1,000 UNIT/10 ML VIAL SUBCUT SCH (08:28)
[2018-10-13] MEDS: LEVALBUTEROL HCL NEB 1.25 MG/3 ML AMPUL NEB SCH (08:37)
[2018-10-13] MEDS: IPRATROPIUM BROMIDE 0.02% NEB 0.5 MG/2.5 ML AMPUL NEB SCH (08:37)
[2018-10-13] MEDS: BUDESONIDE NEB 0.5 MG/2 ML AMPUL NEB SCH (08:37)
[2018-10-13] MEDS: FAMOTIDINE 20 MG TABLET PO SCH (09:15)
[2018-10-13] MEDS: CLOPIDOGREL BISULFATE 75 MG TABLET PO SCH (09:15)
[2018-10-13] MEDS: LOSARTAN POTASSIUM 50 MG TABLET PO SCH (09:15)
[2018-10-13] MEDS: PREDNISONE 20 MG TABLET PO SCH (09:16)
[2018-10-13] MEDS: DOCUSATE SODIUM 100 MG CAPSULE PO SCH (09:16)
[2018-10-13] MEDS ORDERED: CEFTRIAXONE SODIUM 1,000 MG in DEXTROSE 5%-WATER 50 ML IV ONE (11:30)
[2018-10-13 13:36] VITALS: BP 126/75
--- NOTE | 2018-10-13 14:23 | PDOC DISCHARGE SUMMARY ---
General - Admit/Disc Date/PCP Admission Date/Primary Care Provider: 10/08/18 04:16 KI ROMERO MD Discharge Date: 10/13/18 - Discharge Diagnosis (1) Acute respiratory failure with hypoxia Is this a current diagnosis for this admission?: Yes (2) SIRS (systemic inflammatory response syndrome) Is this a current diagnosis for this admission?: Yes (3) UTI (urinary tract infection) Is this a current diagnosis for this admission?: Yes (4) Gram-negative bacteremia Is this a current diagnosis for this admission?: Yes (5) Hyperlipidemia Is this a current diagnosis for this admission?: No (6) Diabetes mellitus type 2 in obese Is this a current diagnosis for this admission?: No (7) CAD (coronary artery disease) Is this a current diagnosis for this admission?: No (8) HTN (hypertension) Is this a current diagnosis for this admission?: No (9) Hypothyroidism Is this a current diagnosis for this admission?: No - Additional Information Resuscitation Status: Full Code Discharge Diet: Diabetic Discharge Activity: Activity As Tolerated Prescriptions: Ipratropium/Albuterol Sulfate [Duoneb 3 ml Ampul] 3 ml NEB RTQ6HP PRN 30 Days #3 vial.neb PRN Reason: Prednisone [Deltasone] 20 mg PO DAILY 3 Days #6 tablet Home Medications: Albuterol Sulfate [Proair HFA Inhalation Aerosol 8.5 gm MDI] 2 puff IH Q6HP PRN 10/08/18 Amlodipine Besylate [Norvasc 10 mg Tablet] 10 mg PO QPM 10/08/18 Atenolol [Tenormin] 25 mg PO QAM 10/08/18 Azelastine/Fluticasone [Dymista Nasal Switchback] 1 spray NASL BID 10/08/18 Benzonatate [Tessalon Perle 100 mg Capsule] 100 mg PO TID 10/08/18 Clopidogrel Bisulfate [Plavix 75 mg Tablet] 75 mg PO DAILY 10/08/18 Furosemide [Lasix 20 mg Tablet] 20 mg PO .TWICE A WEEK 10/08/18 Hydrochlorothiazide [Hydrodiuril 12.5 mg Tablet] 12.5 mg PO QAM 10/08/18 Irbesartan [Avapro] 150 mg PO DAILY 10/08/18 Levothyroxine Sodium 100 mcg PO Q6AM 10/08/18 Lovastatin 40 mg PO QHS 10/08/18 Metformin HCl [Glucophage 500 mg Tablet] 500 mg PO BIDBS 10/08/18 Omeprazole 20 mg PO DAILY 10/08/18 Potassium Chloride [Klor-Con M10] 10 mg PO DAILY 10/08/18 Ipratropium/Albuterol Sulfate [Duoneb 3 ml Ampul] 3 ml NEB RTQ6HP PRN 30 Days #3 vial.neb 10/11/18 Prednisone [Deltasone] 20 mg PO DAILY 3 Days #6 tablet 10/11/18 History of Present Illness History of Present Illness: ROXI PUCKETT is a 87 year old female who presented to the emergency room with acute dyspnea. She (patient speaks very little Slovak and requests to use her daughter as an clinical education academic coordinator/story relator) and her daughter relate that she played bingo on the night prior to her admission and was exposed to a lot of cigarette smoke in the bingo sepulveda. In the late evening hours she was discovered at home by her daughter, who is returning from work, with severe dyspnea, wheezing and markedly increased work of breathing. Her daughter subsequently brought her to the emergency room for treatment. She admits a history of asthma but has never required hospitalization for this. She denies any accompanying or associated signs or symptoms. She admits prior similar symptoms with asthma attacks but never this severe. She has not identified any additional aggravating or ameliorating factors for her acute dyspnea. In the emergency room she was found to have hypoxia and marked increased work of breathing and was subsequently placed on BiPAP. Her chest x-ray was negative but her urinalysis revealed severe pyuria. Patient was noted to have fever of 104.3 F and a 14,000 white blood cell count. She was subsequently admitted to the hospital for further evaluation and treatment. Hospital Course Hospital Course: (1) Acute respiratory failure with hypoxia Improved, pt still dependent on supplemental Oxygen. She drops to 88% on RA. Was discharged home with supplemental O2 to follow-up with PCP for reevaluation. This was likely caused by underlying SIRSs and asthma exacerbation. 10/10/2018: SBP 46088, T-max 98.3, HR 680638, RR 1220, SPO2 97% RA. 10/09/2018: SBP 673049, T-max 97.5, HR 70s, RR 1820, FiO2 9195 2 L NC. Started on supplemental oxygen, duo nebs, BiPAP as needed, IV steroids, IV antibiotics, LABA/LAMA. Discharged on L supplemental oxygen, p.o. steroids to complete 8 days and DuoNebs PRN. (2) SIRS (systemic inflammatory response syndrome) Resolved. This was likely due to UTI and gram-negative bacteremia. Urine and blood culture positive for E. coli pansensitive. 10/10/2018. SBP 682433, T-max 97.5, pulse 60s, RR 1620, SPO2 8893 1 L NC. WBC 14.4 hemoglobin 12.3, platelets 150, 10/09/2018: SBP 299381, T-max 97.5, HR 70s, RR 1820, FiO2 9195 2 L NC. WBC 19.8, hemoglobin 11.9, platelets 134 Received total 7 days of IV antibiotics. Received 4 of IV Zosyn. Received 2 days of IV vancomycin. DC'd on 10/08/2018. Received 1 day of IV ceftriaxone. (3) UTI (urinary tract infection) Due to E. coli pansensitive. Received total 7 days of IV antibiotics. Received 4 of IV Zosyn. Received 2 days of IV vancomycin. DC'd on 10/08/2018. Received 1 day of IV ceftriaxone. (4) Gram-negative bacteremia Blood and urine culture positive for E. coli pansensitive. Repeat blood culture negative. Received total 7 days of IV antibiotics. Since patient has waiting for her oxygen to be delivered for another 2 days we will switch back to switch back to ceftriaxone IV as patient has E. coli bacteremia resistant to fluoroquinolones and Bactrim. Received 1 day of Macrobid. Received 4 days 4 of IV Zosyn. DC'd 10/11/2018. Received 2 days of IV vancomycin. DC'd on 10/08/2018. Received 1 day of IV ceftriaxone. (5) Hyperlipidemia Continue statins. Diet and lifestyle modification. (6) Diabetes mellitus type 2 in obese Likely exacerbated due to patient receiving steroids for asthma exacerbation. Hemoglobin A1c 6.9%. Held metformin. Diabetic diet, sliding scale insulin, long-acting insulin, pre- meal insulin. Adjust dosage as needed. Restarted metformin on discharge. Outpatient PCP follow-up. (7) CAD (coronary artery disease) Denies any anginal pain. Continued antiplatelets, YOU, beta-blockers, statins. Outpatient PCP follow-up. (8) HTN (hypertension) Normotensive. Initially patient came and hypotensive due to SIRS. Monitor vitals, continue ARB, beta blockers. Restart home meds gradually as needed. Adjust dose as needed. Outpatient PCP follow-up. (9) Hypothyroidism TSH 9.45, T3 0.47, T4 2.35 Mild elevated TSH, most likely due to acute illness. Continued levothyroxine. Patient will need a TSH rechecked as outpatient in 4-6 weeks. Physical Exam Vital Signs: Temp Pulse Resp BP Pulse Ox 97.5 F 63 16 126/75 H 92 10/13/18 13:31 10/13/18 13:31 10/13/18 13:31 10/13/18 13:31 10/13/18 13:31 Intake & Output 10/12/18 10/13/18 10/14/18 06:59 06:59 06:59 Intake Total 1050 807 50 Balance 1050 807 50 Weight 68.8 kg 68.6 kg General appearance: PRESENT: no acute distress, well-developed, well-nourished Head exam: PRESENT: atraumatic, normocephalic Eye exam: PRESENT: conjunctiva pink, EOMI, PERRLA. ABSENT: scleral icterus Ear exam: PRESENT: normal external ear exam Mouth exam: PRESENT: moist, tongue midline Neck exam: ABSENT: carotid bruit, JVD, lymphadenopathy, thyromegaly Respiratory exam: PRESENT: clear to auscultation marko. ABSENT: rales, rhonchi, wheezes Cardiovascular exam: PRESENT: RRR. ABSENT: diastolic murmur, rubs, systolic murmur Pulses: PRESENT: normal dorsalis pedis pul Vascular exam: PRESENT: normal capillary refill GI/Abdominal exam: PRESENT: normal bowel sounds, soft. ABSENT: distended, guarding, mass, organolmegaly, rebound, tenderness Rectal exam: PRESENT: deferred Extremities exam: PRESENT: full ROM. ABSENT: calf tenderness, clubbing, pedal edema Neurological exam: PRESENT: alert, awake, oriented to person, oriented to place, oriented to time, oriented to situation, CN II-XII grossly intact. ABSENT: motor sensory deficit Psychiatric exam: PRESENT: appropriate affect, normal mood. ABSENT: homicidal ideation, suicidal ideation Skin exam: PRESENT: dry, intact, warm. ABSENT: cyanosis, rash Results Laboratory Results: 10/11/18 06:07 10/11/18 06:07 Impressions: Chest X-Ray 10/07/18 23:54 IMPRESSION: Cardiomegaly. Lungs are clear copyright 2011 [employer]- All Rights Reserved KUB X-Ray 10/08/18 00:00 IMPRESSION: NO RADIOGRAPHIC EVIDENCE FOR ACUTE ABDOMINAL DISEASE. Qualifiers - * PATIENT BEING DISCHARGED WITH ANY OF THE FOLLOWING DIAGNOSIS: No Acute Heart Failure - Is this a Heart Failure Patient?: No
[2018-10-16] MEDS ORDERED: FUROSEMIDE 20 MG TABLET PO SCH (10:00)
== END 2018-10-13 14:10 | disposition home or self-care (01) | DRG 202 ==
LOC: ER 23:41 → EH 10-08 04:16 → 3S 10-08 06:56
PROVIDERS: ADMIT Emergency Medicine; ATTEND Emergency Medicine
PROC: 5A09457 Assistance with Respiratory Ventilation, 24-96 Consecutive Hours, Continuous Positive Airway Pressure (ICD-10-PCS; principal; 2018-10-07)
DX: J45.52 Severe persistent asthma with status asthmaticus (principal); J96.01 Acute respiratory failure with hypoxia; N39.0 Urinary tract infection, site not specified; R78.81 Bacteremia; E78.5 Hyperlipidemia, unspecified; E11.9 Type 2 diabetes mellitus without complications; E66.9 Obesity, unspecified; I25.10 Atherosclerotic heart disease of native coronary artery without angina pectoris; I10 Essential (primary) hypertension; E03.9 Hypothyroidism, unspecified; B96.20 Unspecified Escherichia coli [E. coli] as the cause of diseases classified elsewhere; Z77.22 Contact with and (suspected) exposure to environmental tobacco smoke (acute) (chronic); Z99.81 Dependence on supplemental oxygen; Z79.899 Other long term (current) drug therapy; Z79.84 Long term (current) use of oral hypoglycemic drugs; Z83.3 Family history of diabetes mellitus; Z82.49 Family history of ischemic heart disease and other diseases of the circulatory system
CPT/HCPCS: 36415; 71045; 74018; 80048; 80061; 81001; 82803; 82962; 83036; 83605; 83735; 84439; 84443; 84481; 85025; 87040; 87077; 87086; 87088; 87186; 93005; 93010; 94640; 94660; 96365; 96367; 96375; 99291; J0696; J1644; J1815; J2185; J2270; J2543; J2920; J2930; J3370; J3475; J3490; J7050; J7060; J7120; J7512; J7620; J8499; S0028

== ENCOUNTER → 2019-01-02 | Outpatient (CLI) | payer MEDICARE, MEDICAID ==
--- NOTE | 2019-01-02 16:48 | RADIOLOGY REPORT (SQ) ---
EXAM DESCRIPTION: CT CHEST WITHOUT COMPLETED DATE/TIME: 01/02/2019 3:44 pm REASON FOR STUDY: R91.1 SOLITARY PULMONARY NODULE R91.1 SOLITARY PULMONARY NODULE J98.4 OTHER DISO RDERS OF LUNG J45.909 UNSPECIFIED ASTHMA, UNCOMPLICATED COMPARISON: None. TECHNIQUE: CT scan performed of the chest without intravenous contrast. Images reviewed with lung, soft tissue and bone windows. Reconstructed coronal and sagittal MPR images reviewed. All images st ored on PACS. All CT scanners at this facility use dose modulation, iterative reconstruction, and/or weight based d osing when appropriate to reduce radiation dose to as low as reasonably achievable (ALARA). [facility]: Dose Right [facility]: CareDose [facility]: Dose Right [facility]: Teradose 4D [facility]: [employer] RADIATION DOSE: CT Rad equipment meets quality standard of care and radiation dose reduction techniq ues were employed. CTDIvol: 7.4 mGy. DLP: 269 mGy-cm. mGy. LIMITATIONS: No technical limitations. FINDINGS: LUNGS AND PLEURA: Mild motion artifact. No discrete pulmonary nodules are appreciated all owing for this. No infiltrates, consolidation or pleural disease. HILAR AND MEDIASTINAL STRUCTURES: No identified masses or abnormal nodes. No obvious aneurysm. HEART AND VASCULAR STRUCTURES: Cardiomegaly. Heavy coronary calcification. No pericardial effusion. Focal mid transverse aortic saccular aneurysm. Maximal transverse dimension here is approximately 3.6 cm. Aortic caliber otherwise looks relatively normal. UPPER ABDOMEN: 1.6 cm right adrenal nodule, indeterminate. Hounsfield units just under 20. Marked c holelithiasis. Small hiatal hernia. Large amount of retained stool, incompletely evaluated. THYROID AND OTHER SOFT TISSUES: Small calcified thyroid gland. No axillary adenopathy. BONES: No significant finding. HARDWARE: None in the chest. OTHER: No other significant findings. IMPRESSION: 1. No lung infiltrates or nodules identified. 2. Other findings as detailed above. TECHNICAL DOCUMENTATION: JOB ID: [id number] Quality ID # [id number]: Final reports with documentation of one or more dose reduction techniques (e.g., Au tomated exposure control, adjustment of the mA and/or kV according to patient size, use of iterative reconstruction technique) 2010 [employer]- All Rights Reserved Reading location - IP/workstation name: [email or web address]
== END ==
LOC: RAD 15:00
PROVIDERS: ATTEND Internal Medicine Critical Care Medicine
DX: R91.1 Solitary pulmonary nodule (principal); J98.4 Other disorders of lung; J45.909 Unspecified asthma, uncomplicated
CPT/HCPCS: 71250

== ENCOUNTER 2020-01-29 14:17 | Inpatient (IN) | payer MEDICARE, MEDICAID ==
[2020-01-29 15:12] LABS: ABSOLUTE BASOPHILS # (AUTO) 0.1 10^3/uL (0.0-0.2); ABSOLUTE EOSINOPHILS # (AUTO) 0.1 10^3/uL (0.0-0.6); ABSOLUTE LYMPHOCYTES (AUTO) 0.9 10^3/uL (0.5-4.7); ABSOLUTE MONOCYTES (AUTO) 0.6 10^3/uL (0.1-1.4); ABSOLUTE NEUT (AUTO) 8.6 10^3/uL (1.7-8.2); BASOPHILS % (AUTO) 0.7 % (0-2); EOSINOPHILS % (AUTO) 0.7 % (0-6); HEMATOCRIT 40.2 % (36.0-47.0); HEMOGLOBIN 14.5 g/dL (12.0-15.5); LYMPHOCYTES % (AUTO) 9.1 % (13-45); MEAN CORPUSCULAR HEMOGLOBIN 32.5 pg (27.0-33.4); MEAN CORPUSCULAR VOLUME 90 fl (80-97); MONOCYTES % (AUTO) 6.2 % (3-13); PLATELET COUNT 217 10^3/uL (150-450); RED BLOOD COUNT 4.46 10^6/uL (3.72-5.28); RED CELL DISTRIBUTION WIDTH 13.4 % (11.5-14.0); SEGMENTED NEUTROPHILS % (AUTO) 83.3 % (42-78); TOTAL CELLS COUNTED % (AUTO) 100 %; WHITE BLOOD COUNT 10.3 10^3/uL (4.0-10.5)
[2020-01-29 15:29] LABS: BLOOD UREA NITROGEN 11 mg/dL (7-20); CALCIUM 8.5 mg/dL (8.4-10.2); GLUCOSE 83 mg/dL (75-110)
[2020-01-29 15:30] LABS: ALBUMIN 3.6 g/dL (3.5-5.0); ALKALINE PHOSPHATASE 74 U/L (38-126); ANION GAP 11 (5-19); ASPARTATE AMINO TRANSFERASE 62 U/L (14-36); BILIRUBIN,DIRECT 0.3 mg/dL (0.0-0.4); BILIRUBIN,TOTAL 1.4 mg/dL (0.2-1.3); CARBON DIOXIDE 23 mmol/L (22-30); CHLORIDE 88 mmol/L (98-107); POTASSIUM 3.5 mmol/L (3.6-5.0); TOTAL PROTEIN 6.3 g/dL (6.3-8.2)
[2020-01-29 15:37] LABS: CREATINE KINASE 2405 U/L (30-135)
[2020-01-29] MEDS ORDERED: NORMAL SALINE 500 ML IV ONE (15:38)
--- NOTE | 2020-01-29 16:09 | RADIOLOGY REPORT (SQ) ---
EXAM DESCRIPTION: CHEST SINGLE VIEW IMAGES COMPLETED DATE/TIME: 01/29/2020 2:59 pm REASON FOR STUDY: found on floor ?syncope COMPARISON: 10/08/2018 EXAM PARAMETERS: NUMBER OF VIEWS: One view. TECHNIQUE: Single frontal radiographic view of the chest acquired. RADIATION DOSE: NA LIMITATIONS: None. FINDINGS: LUNGS AND PLEURA: No opacities, masses or pneumothorax. No pleural effusion. MEDIASTINUM AND HILAR STRUCTURES: No masses. Contour normal. HEART AND VASCULAR STRUCTURES: Cardiomegaly. No pulmonary edema. BONES: No acute findings. HARDWARE: None in the chest. OTHER: No other significant finding. IMPRESSION: Cardiomegaly without pulmonary edema. TECHNICAL DOCUMENTATION: JOB ID: [id number] 2010 [employer]- All Rights Reserved Reading location - IP/workstation name: [email or web address]
[2020-01-29 16:47] LABS: A TYPE INFLUENZA AG NEGATIVE (NEGATIVE); B INFLUENZA AG NEGATIVE (NEGATIVE)
[2020-01-29] MEDS ORDERED: IPRATROPIUM/ALBUTEROL 0.5-2.5 MG/3 ML AMPUL NEB ONE (17:04)
--- NOTE | 2020-01-29 17:11 | ER Document Report ---
ED General - General Chief Complaint: Fall Stated Complaint: FALL Time Seen by Provider: 01/29/20 14:30 Primary Care Provider: MATHEW DAVIDSON MD [Primary Care Provider] - Follow up as needed Mode of Arrival: Stretcher Information source: Patient, Emergency Med Personnel Cannot obtain history due to: Other - Major language barrier Notes: We were told that the patient's daughter was actually at the patient's home and said that she had been on the ground overnight. From the best that we can tell from her medications is that she has some high blood pressure, diabetes, low thyroid, nitro for angina. The daughter said that she would come to the ER after she had gone to lunch. Several hours of gone by since have seen the patient and the daughter is not answering her phone or found in the lobby. I was able to do preliminary interview with the patient and get some basic history from her through the [employer] sheet ironworker Marybel number [id number] Maribell. Patient is of very limited on details. She says that her whole body is hurting. She is mildly hypoxic donating about 90 to 92% on room air. When asked if she uses machines or medications to help her breathing she cannot answer either way. She does not know whether she had a syncopal episode. She does not complain of nasal congestion, cough, or fever. She continually talks about how bad her body hurts in general. TRAVEL OUTSIDE OF THE [place] IN LAST 30 DAYS: No - Related Data Allergies/Adverse Reactions: No Known Allergies Allergy (Verified 01/29/20 19:47) Past Medical History - Social History Smoking Status: Unknown if Ever Smoked Family History: DM, Hypertension - Past Medical History Cardiac Medical History: Reports: Hx Hypercholesterolemia, Hx Hypertension Denies: Hx Atrial Fibrillation, Hx Congestive Heart Failure, Hx Coronary Artery Disease, Hx Heart Attack Pulmonary Medical History: Reports: Hx Asthma Denies: Hx COPD, Hx Respiratory Failure Neurological Medical History: Denies: Hx Seizures Endocrine Medical History: Reports: Hx Diabetes Mellitus Type 2. Denies: Hx Diabetes Mellitus Type 1, Hx Hyperthyroidism, Hx Hypothyroidism Renal/ Medical History: Denies: Hx Peritoneal Dialysis GI Medical History: Denies: Hx Cirrhosis, Hx Hepatitis Musculoskeletal Medical History: Denies Hx Arthritis, Denies Hx Gout Skin Medical History: Denies Hx Eczema, Denies Hx Psoriasis Infectious Medical History: Denies: Hx Hepatitis Review of Systems - Review of Systems Notes: Constitutional: No fevers. No chills. EENT: No eye redness. No eye pain. No ear pain. No sore throat. Cardiovascular: No chest pain. No palpitations. Respiratory: No cough. No shortness of breath. No respiratory distress. Gastrointestinal: No abdominal pain. No nausea, vomiting, or diarrhea. Genitourinary: Atraumatic. No lesions. No pain. No discharge. Musculoskeletal: Atraumatic. No swelling. No deformities. Total body pain Skin: No rash or lesions. Lymphatic: No swollen lymph nodes. Neurologic: No headache. No syncope. Psychiatric: No suicidal or homicidal ideation. Physical Exam - Vital signs Vitals: Resp Pulse Ox 18 94 01/29/20 14:30 01/29/20 14:30 - Notes Notes: General: Well-developed, well-nourished. In no acute distress. Non-toxic appearing. Cardiac: Well-perfused. Regular rate and rhythm. No murmurs, rubs, or gallops. Pulmonary: No respiratory distress. No cyanosis. Bilateral lung fiels are clear to auscultation. Abdominal: Non-distended. Non-rigid. Bowels sounds are present in all four quadrants. No guarding or rebound. HEENT: Head is atraumatic. Conjunctivae not reddened. No tearing. PERRL. EOMI. Orbits atraumatic. No periorbital swelling or erythema. Oropharynx is without erythema, swelling, or exudates. Neck: Supple. No adenopathy. No meningismus. Dermatologic: Warm with good turgor. No rash. Atraumatic. Chest: Atraumatic. No chest wall tenderness to palpation. Musculoskeletal: Moves all extremities well. No range of motion deficits. no muscular or joint tenderness. No paraspinal muscle tenderness. no midline spinal tenderness or step-off. Genitourinary: Examination deferred Neurologic: No gross neurologic deficits. Psychiatric: Normal mood. Course - Re-evaluation Re-evalutation: 01/29/20 17:13 Patient has a very limited information to offer. At this time we know that she is hyponatremic. Her CPK is elevated. COVID screen is ordered. Mildly hypoxic on room air. Doing better on nasal cannula. Paramedics acknowledge the presence of an oxygen apparatus at the home but the patient cannot tell us if she depends on it all the time or not. Chest x-ray is negative. She is not in any distress. Apart from the oxygen saturation vital signs are stable. Get a scan of the head and neck and get a pelvis x-ray. Most likely patient will be need to be admitted for slow hydration for hyponatremia and rhabdomyolysis. Cath urine pending 01/29/20 18:22 I finally was able to speak to the patient's daughter who finally showed up to the department. She says that the patient lives in the same house with her. She has apparently fallen down on a couple of occasions. When her daughter finds her she tells her that she does not want to get up and go back into her bed for fear that she is going to have a urinary accident and soil her sheets. Subsequently the patient request of her daughter that she get her a pillow and she lays and sleeps on the ground where she falls. Apparently the hyponatremia has been going on for some time though to what degree I do not know. She definitely has some mild hypoxia. I suspect that the patient has some oxygen at home but I will confirm with the daughter. UTI noted and treated. Patient has no musculoskeletal areas of focal pain but will scan her head and neck and get a pelvis x-ray just to make sure she does not have any fractures or bleeds. - Vital Signs Vital signs: Temp Pulse Resp BP Pulse Ox 97.9 F 20 101/52 L 94 01/29/20 15:13 01/29/20 19:01 01/29/20 19:01 01/29/20 19:01 - Laboratory Result Diagrams: 01/29/20 15:00 01/29/20 15:00 Laboratory results interpreted by me: 01/29/20 01/29/20 01/29/20 15:00 15:00 17:19 Lymph % (Auto) 9.1 L Absolute Neuts (auto) 8.6 H Seg Neutrophils % 83.3 H Sodium 122.2 L Potassium 3.5 L Chloride 88 L Total Bilirubin 1.4 H AST 62 H Creatine Kinase 2405 H Urine Blood SMALL H Urine Nitrite (Reflex) POSITIVE H Leukocyte Esterase Rfl LARGE H Discharge - Discharge Clinical Impression: Multiple falls, Hyponatremia Urinary tract infection Qualifiers: Urinary tract infection type: site unspecified Hematuria presence: without hematuria Qualified Code(s): N39.0 - Urinary tract infection, site not specified Rhabdomyolysis Qualifiers: Rhabdomyolysis type: non-traumatic Qualified Code(s): M62.82 - Rhabdomyolysis Condition: Good Disposition: ADMITTED INPATIENT Admitting Provider: Giovani (Hospitalist) Unit Admitted: IMCU Referrals: MATHEW DAVIDSON MD [Primary Care Provider] - Follow up as needed
[2020-01-29 18:09] LABS: APPEARANCE,URINE SLIGHTLY-CLOUDY; BILIRUBIN,URINE NEGATIVE (NEGATIVE); COLOR,URINE YELLOW; GLUCOSE, URINE NEGATIVE (NEGATIVE); KETONES,URINE NEGATIVE (NEGATIVE); PROTEIN,URINE NEGATIVE (NEGATIVE); URINE SPECIFIC GRAVITY 1.006; UROBILINOGEN,URINE NEGATIVE mg/dL (<2.0)
--- NOTE | 2020-01-29 18:13 | RADIOLOGY REPORT (SQ) ---
EXAM DESCRIPTION: CT CERVICAL SPINE WITHOUT IMAGES COMPLETED DATE/TIME: 01/29/2020 5:58 pm REASON FOR STUDY: syncope COMPARISON: None. TECHNIQUE: Axial images acquired through the cervical spine without intravenous contrast. Images re viewed with lung, soft tissue and bone windows. Reconstructed coronal and sagittal MPR images review ed. Images stored on PACS. All CT scanners at this facility use dose modulation, iterative reconstruction, and/or weight based d osing when appropriate to reduce radiation dose to as low as reasonably achievable (ALARA). [facility]: Dose Right [facility]: CareDose [facility]: Dose Right [facility]: Teradose 4D [facility]: [employer] RADIATION DOSE: CT Rad equipment meets quality standard of care and radiation dose reduction techniq ues were employed. CTDIvol: 19.2 mGy. DLP: 333 mGy-cm. mGy. LIMITATIONS: None. FINDINGS: ALIGNMENT: Anatomic. MINERALIZATION: Normal. VERTEBRAL BODIES: No fractures or dislocation. DISCS: Multilevel disc space narrowing with osteophytes. FACETS, LATERAL MASSES, POSTERIOR ELEMENTS: Facet arthropathy. No fractures. No dislocation. No ac kobuk findings. HARDWARE: None in the spine. VISUALIZED RIBS: No fractures. LUNG APICES AND SOFT TISSUES: No acute findings. OTHER: No other significant finding. IMPRESSION: CHRONIC DEGENERATIVE CHANGES. NO ACUTE FINDINGS. TECHNICAL DOCUMENTATION: JOB ID: [id number] [place]-72 Quality ID # [id number]: Final reports with documentation of one or more dose reduction techniques (e.g., Au tomated exposure control, adjustment of the mA and/or kV according to patient size, use of iterative reconstruction technique) 2010 [employer]- All Rights Reserved Reading location - IP/workstation name: [email or web address]
--- NOTE | 2020-01-29 18:17 | RADIOLOGY REPORT (SQ) ---
EXAM DESCRIPTION: CT HEAD WITHOUT IMAGES COMPLETED DATE/TIME: 01/29/2020 5:58 pm REASON FOR STUDY: syncope COMPARISON: 11/18/2010 TECHNIQUE: Axial images acquired through the brain without intravenous contrast. Images reviewed wit h bone, brain and subdural windows. Images stored on PACS. All CT scanners at this facility use dose modulation, iterative reconstruction, and/or weight based d osing when appropriate to reduce radiation dose to as low as reasonably achievable (ALARA). [facility]: Dose Right [facility]: CareDose [facility]: Dose Right [facility]: Teradose 4D [facility]: [employer] RADIATION DOSE: CT Rad equipment meets quality standard of care and radiation dose reduction techniq ues were employed. CTDIvol: 53.2 mGy. DLP: 991 mGy-cm.. LIMITATIONS: None. FINDINGS: VENTRICLES: Normal size and contour. CEREBRUM: No masses. No hemorrhage. No midline shift. Age appropriate white matter. No evidence for a cute large vessel infarction. CEREBELLUM: No masses. No hemorrhage. No alteration of density. No evidence for acute infarction. EXTRA-AXIAL SPACES: No fluid collections. ORBITS AND GLOBE: No intra- or extraconal masses. Normal contour of globe without masses. CALVARIUM: No fracture. PARANASAL SINUSES: No fluid or mucosal thickening. SOFT TISSUES: No mass or hematoma. OTHER: No other significant finding. IMPRESSION: NO ACUTE INTRACRANIAL FINDINGS. EVIDENCE OF ACUTE STROKE: NO. TECHNICAL DOCUMENTATION: JOB ID: [id number] [place]-72 Quality ID # [id number]: Final reports with documentation of one or more dose reduction techniques (e.g., Au tomated exposure control, adjustment of the mA and/or kV according to patient size, use of iterative reconstruction technique) 2010 [employer]- All Rights Reserved Reading location - IP/workstation name: [email or web address]
[2020-01-29] MEDS ORDERED: CEFTRIAXONE 1 GM/D5W RTU 1 GM/50 ML RTUPB IV ONE (18:21)
--- NOTE | 2020-01-29 18:22 | RADIOLOGY REPORT (SQ) ---
EXAM DESCRIPTION: PELVIS AP IMAGES COMPLETED DATE/TIME: 01/29/2020 5:58 pm REASON FOR STUDY: FALL syncope COMPARISON: None. NUMBER OF VIEWS: One view TECHNIQUE: AP Pelvis LIMITATIONS: None. FINDINGS: MINERALIZATION: Normal. HIPS: No acute fracture or dislocation. No worrisome bone lesions. PELVIS AND SACRUM: No acute fracture or dislocation. No worrisome bone lesions. PUBIS AND ISCHIUM: No acute fracture. LOWER LUMBAR SPINE: No acute findings as visualized. SOFT TISSUES: No findings. OTHER: No other significant finding. IMPRESSION: No fracture identified. COMMENT: Pelvic fractures are often occult on plain radiographs. If strong clinical suspicion for f racture, recommend CT or MR. TECHNICAL DOCUMENTATION: JOB ID: [id number] [place]-72 2010 [employer]- All Rights Reserved Reading location - IP/workstation name: [email or web address]
[2020-01-29] MEDS ORDERED: NORMAL SALINE 1000 ML 1,000 ML IV ONE (18:34)
[2020-01-29] MEDS ORDERED: ONDANSETRON 4 MG TAB.RAPDIS PO PRN (20:56)
[2020-01-29] MEDS ORDERED: NORMAL SALINE 1000 ML 1,000 ML IV PRN (20:56)
[2020-01-29] MEDS ORDERED: ACETAMINOPHEN 325 MG TABLET PO PRN (20:56)
--- NOTE | 2020-01-29 21:08 | PDOC H&P ---
History of Present Illness Admission Date/PCP: 01/29/20 20:28 MATHEW DAVIDSON MD Patient complains of: generailizd body malaise History of Present Illness: ROXI PUCKETT is a 89 year old female, PMH of hypothyroidism, Asthma, T2DM, HTN who came to the ED due to unwitnessed fall. Patient speaks limited Occitan and Tagalog. She complains of generalized body aches for about 1 week and cough that is chronic. she denied any fever, SOB, urinary symptoms, nausea/vomiting or diarrhea. She cannot elaborate further on how she fell or when. Per ED history she was found by her daughter at home and apparently has been lying down there overnight. She has had frequent falls per daughter. In the ED, VS BP 120/56, HR 68, O2 sat 83% on RA improved with 2L NC. CT head and CXR was negative. CBC no increased WBC. UA showed positive nitrite and leukocyte esterase. CMP showed hyponatremia to 122, CK 2405. She was given IV fluids, ceftriaxone and was admitted. Past Medical History Cardiac Medical History: Reports: Hyperlipidema, Hypertension Denies: Atrial Fibrillation, Congestive Heart Failure, Coronary Artery Disease, Myocardial Infarction Pulmonary Medical History: Reports: Asthma Denies: Chronic Obstructive Pulmonary Disease (COPD), Respiratory Failure Neurological Medical History: Denies: Seizures Endocrine Medical History: Reports: Diabetes Mellitus Type 2 Denies: Diabetes Mellitus Type 1, Hyperthyroidism, Hypothyroidism GI Medical History: Denies: Cirrhosis, Hepatitis Musculoskeltal Medical History: Denies: Arthritis, Gout Skin Medical History: Denies: Eczema, Psoriasis Hematology: Denies: Anemia, Bleeding Tendencies Past Surgical History Past Surgical History: Reports: None Social History Information Source: Patient Smoking Status: Unknown if Ever Smoked Frequency of Alcohol Use: None Hx Recreational Drug Use: No Drugs: None Hx Prescription Drug Abuse: No Family History Family History: DM, Hypertension Parental Family History Reviewed: No Children Family History Reviewed: Yes Sibling(s) Family History Reviewed.: No Medication/Allergy Home Medications: Albuterol Sulfate [Proair HFA Inhalation Aerosol 8.5 gm MDI] 2 puff IH Q6HP PRN 10/08/18 Amlodipine Besylate [Norvasc 10 mg Tablet] 10 mg PO QPM 10/08/18 Atenolol [Tenormin] 25 mg PO QAM 10/08/18 Azelastine/Fluticasone [Dymista Nasal [place]] 1 spray NASL BID 10/08/18 Benzonatate [Tessalon [place] 100 mg Capsule] 100 mg PO TID 10/08/18 Clopidogrel Bisulfate [Plavix 75 mg Tablet] 75 mg PO DAILY 10/08/18 Furosemide [Lasix 20 mg Tablet] 20 mg PO .TWICE A WEEK 10/08/18 Hydrochlorothiazide [Hydrodiuril 12.5 mg Tablet] 12.5 mg PO QAM 10/08/18 Irbesartan [Avapro] 150 mg PO DAILY 10/08/18 Levothyroxine Sodium 100 mcg PO Q6AM 10/08/18 Lovastatin 40 mg PO QHS 10/08/18 Metformin HCl [Glucophage 500 mg Tablet] 500 mg PO BIDBS 10/08/18 Omeprazole 20 mg PO DAILY 10/08/18 Potassium Chloride [Klor-Con M10] 10 mg PO DAILY 10/08/18 Ipratropium/Albuterol Sulfate [Duoneb 3 ml Ampul] 3 ml NEB RTQ6HP PRN 30 Days #3 vial.neb 10/11/18 Prednisone [Deltasone] 20 mg PO DAILY 3 Days #6 tablet 10/11/18 Allergies/Adverse Reactions: No Known Allergies Allergy (Verified 01/29/20 19:47) Review of Systems ROS unobtainable: Due to mental status Constitutional: PRESENT: weakness Physical Exam Vital Signs: Temp Pulse Resp BP Pulse Ox 97.9 F 20 101/52 L 94 01/29/20 15:13 01/29/20 19:01 01/29/20 19:01 01/29/20 19:01 Intake & Output 01/28/20 01/29/20 01/30/20 06:59 06:59 06:59 Intake Total 500 Balance 500 Weight 81.647 kg General appearance: PRESENT: cooperative, hard of hearing Head exam: PRESENT: atraumatic, normocephalic Eye exam: PRESENT: EOMI, PERRLA Mouth exam: PRESENT: moist Neck exam: PRESENT: full ROM Respiratory exam: PRESENT: clear to auscultation marko, symmetrical, unlabored. ABSENT: rales Cardiovascular exam: PRESENT: RRR, +S1, +S2 Pulses: PRESENT: +2 pedal pulses bilateral GI/Abdominal exam: PRESENT: normal bowel sounds, soft. ABSENT: rebound, tenderness Extremities exam: PRESENT: full ROM Musculoskeletal exam: PRESENT: full ROM Neurological exam: PRESENT: alert, awake, oriented to person, oriented to place, oriented to time Psychiatric exam: PRESENT: normal mood Skin exam: PRESENT: normal color Results Laboratory Results: 01/29/20 15:00 01/29/20 15:00 01/29/20 01/29/20 01/29/20 15:00 15:00 15:00 WBC 10.3 RBC 4.46 Hgb 14.5 Hct 40.2 MCV 90 MCH 32.5 MCHC 36.0 RDW 13.4 Plt Count 217 Seg Neutrophils % 83.3 H Sodium 122.2 L Potassium 3.5 L Chloride 88 L Carbon Dioxide 23 Anion Gap 11 BUN 11 Creatinine 0.57 Est GFR ( Amer) > 60 Glucose 83 Lactic Acid 1.4 Calcium 8.5 Total Bilirubin 1.4 H AST 62 H Alkaline Phosphatase 74 Total Protein 6.3 Albumin 3.6 Urine Color Urine Appearance Urine pH Ur Specific [place] Urine Protein Urine Glucose (UA) Urine Ketones Urine Blood Urine RBC (Auto) 01/29/20 17:19 WBC RBC Hgb Hct MCV MCH MCHC RDW Plt Count Seg Neutrophils % Sodium Potassium Chloride Carbon Dioxide Anion Gap BUN Creatinine Est GFR ( Amer) Glucose Lactic Acid Calcium Total Bilirubin AST Alkaline Phosphatase Total Protein Albumin Urine Color YELLOW Urine Appearance SLIGHTLY-CLOUDY Urine pH 7.0 Ur Specific [place] 1.006 Urine Protein NEGATIVE Urine Glucose (UA) NEGATIVE Urine Ketones NEGATIVE Urine Blood SMALL H Urine RBC (Auto) 2 01/29/20 01/29/20 15:00 15:00 Creatine Kinase 2405 H Troponin I < 0.012 Impressions: Chest X-Ray 01/29/20 14:47 IMPRESSION: Cardiomegaly without pulmonary edema. Cervical Spine CT 01/29/20 17:01 IMPRESSION: CHRONIC DEGENERATIVE CHANGES. NO ACUTE FINDINGS. Head CT 01/29/20 17:01 IMPRESSION: NO ACUTE INTRACRANIAL FINDINGS. EVIDENCE OF ACUTE STROKE: NO. Pelvis X-Ray 01/29/20 17:01 IMPRESSION: No fracture identified. Assessment and Plan - Diagnosis (1) UTI (urinary tract infection) Qualifiers: Urinary tract infection type: site unspecified Hematuria presence: without hematuria Qualified Code(s): N39.0 - Urinary tract infection, site not specified Is this a current diagnosis for this admission?: Yes Plan: - +ve nitrite and leukocyte esterase - no urinary symptoms but has been having body malaise - urine culture pending - on ceftriaxone (2) Rhabdomyolysis Qualifiers: Rhabdomyolysis type: non-traumatic Qualified Code(s): M62.82 - Rhabdomyolysis Is this a current diagnosis for this admission?: Yes Plan: - unwitnessed fall has apparently been on the ground for several hours - previous falls - CK 2405, Crea normal, K 3.5 - will hydrate and repeat in the morning (3) Hyponatremia Is this a current diagnosis for this admission?: Yes Plan: - Na 122 likely chronic - will hydrate and repeat 4 hrs - urine Na, urine osmolality, serum osm (4) Acute respiratory failure with hypoxia Is this a current diagnosis for this admission?: Yes Plan: - 83% on RA - hx of asthma -improved on 2L NC - CXR negative - COVID test pending (5) Multiple falls Is this a current diagnosis for this admission?: Yes Plan: - Ck elevated - CT head negative - PT/OT consulted (6) Suspected COVID-19 virus infection Is this a current diagnosis for this admission?: Yes Plan: - tested in the ED due to body malaise - COVID pending - Time Time Spent with patient: 25-34 minutes Anticipated Discharge Disposition: Home, Self Care Anticipated Discharge Timeframe: to be determined - Inpatient Certification Based on my medical assessment, after consideration of the patient's comorbidities, presenting symptoms, or acuity I expect that the services needed warrant INPATIENT care.: Yes I certify that my determination is in accordance with my understanding of Medicare's requirements for reasonable and necessary INPATIENT services [42 CFR 412.3e].: Yes Medical Necessity: Risk of Complication if Not Cared For in Hospital
[2020-01-29] MEDS ORDERED: IPRATROPIUM/ALBUTEROL 0.5-2.5 MG/3 ML AMPUL NEB PRN (21:10)
[2020-01-29 22:35] LABS: ANION GAP 9 (5-19); BLOOD UREA NITROGEN 10 mg/dL (7-20); CALCIUM 8.5 mg/dL (8.4-10.2); CARBON DIOXIDE 27 mmol/L (22-30); CHLORIDE 93 mmol/L (98-107); GLUCOSE 104 mg/dL (75-110); POTASSIUM 3.2 mmol/L (3.6-5.0)
[2020-01-29] MEDS: HEPARIN SOD (PORCINE) 5,000 UNIT/ML 1 ML VIAL SUBCUT SCH (23:48)
[2020-01-30] MEDS: POTASSI CL 20 MEQ/50 ML RIDER 20 MEQ/50 ML RTUPB IV SCH ×2 (01:03→04:38)
[2020-01-30] MEDS ORDERED: DEXTROSE 40% GEL 15 GM TUBE PO PRN ×2 (04:43)
[2020-01-30] MEDS ORDERED: DEXTROSE 50%-WATER 25 GM/50 ML DISP.SYRIN IV PRN ×2 (04:43)
[2020-01-30] MEDS ORDERED: GLUCAGON,HUMAN RECOMB 1 MG INJ IM PRN (04:43)
[2020-01-30] MEDS: HEPARIN SOD (PORCINE) 5,000 UNIT/ML 1 ML VIAL SUBCUT SCH ×3 (05:12→21:50)
[2020-01-30] MEDS: INSULIN LISPRO 100 UNIT/ML 3 ML VIAL SUBCUT SCH ×4 (08:16→21:27)
[2020-01-30 08:52] LABS: ABSOLUTE EOSINOPHILS # (AUTO) 0.1 10^3/uL (0.0-0.6); ABSOLUTE LYMPHOCYTES (AUTO) 0.6 10^3/uL (0.5-4.7); ABSOLUTE MONOCYTES (AUTO) 0.4 10^3/uL (0.1-1.4); ABSOLUTE NEUT (AUTO) 6.7 10^3/uL (1.7-8.2); BASOPHILS % (AUTO) 0.4 % (0-2); EOSINOPHILS % (AUTO) 1.1 % (0-6); HEMATOCRIT 38.9 % (36.0-47.0); HEMOGLOBIN 13.7 g/dL (12.0-15.5); LYMPHOCYTES % (AUTO) 7.9 % (13-45); MEAN CORPUSCULAR HEMOGLOBIN 31.9 pg (27.0-33.4); MEAN CORPUSCULAR HGB CONC 35.1 g/dL (32.0-36.0); MEAN CORPUSCULAR VOLUME 91 fl (80-97); MONOCYTES % (AUTO) 5.5 % (3-13); PLATELET COUNT 210 10^3/uL (150-450); RED BLOOD COUNT 4.28 10^6/uL (3.72-5.28); RED CELL DISTRIBUTION WIDTH 13.6 % (11.5-14.0); SEGMENTED NEUTROPHILS % (AUTO) 85.1 % (42-78); TOTAL CELLS COUNTED % (AUTO) 100 %; WHITE BLOOD COUNT 7.8 10^3/uL (4.0-10.5)
--- NOTE | 2020-01-30 09:08 | EKG REPORT ---
SEVERITY:- ABNORMAL ECG - ACCELERATED JUNCTIONAL ESCAPE RHYTHM VERSUS SINUS.BASELINE ARTIFACT.REPEAT EKG PROBABLE ANTEROSEPTAL INFARCT, AGE INDETERM : Confirmed by: Cyndie Andrade MD 30-Jan-2020 09:08:09
[2020-01-30 09:17] LABS: ALBUMIN 3.7 g/dL (3.5-5.0); ALKALINE PHOSPHATASE 81 U/L (38-126); ANION GAP 9 (5-19); ASPARTATE AMINO TRANSFERASE 54 U/L (14-36); BILIRUBIN,DIRECT 0.3 mg/dL (0.0-0.4); BILIRUBIN,TOTAL 0.9 mg/dL (0.2-1.3); BLOOD UREA NITROGEN 9 mg/dL (7-20); CALCIUM 8.2 mg/dL (8.4-10.2); CARBON DIOXIDE 25 mmol/L (22-30); CHLORIDE 100 mmol/L (98-107); CREATINE KINASE 1152 U/L (30-135); GLUCOSE 94 mg/dL (75-110); POTASSIUM 3.7 mmol/L (3.6-5.0); TOTAL PROTEIN 6.3 g/dL (6.3-8.2)
[2020-01-30] MEDS: CEFTRIAXONE 2 GM/D5W RTU 2 GM/50 ML RTUPB IV SCH (09:17)
[2020-01-30] MEDS: DOCUSATE SODIUM 100 MG CAPSULE PO SCH ×2 (09:17→17:36)
[2020-01-30] MEDS ORDERED: DEXTROSE 5%-WATER 1000 ML 1,000 ML IV PRN (15:23)
[2020-01-30] MEDS ORDERED: NITROGLYCERIN 0.4 MG/TAB 25 TAB/BOTTLE SL PRN (16:05)
--- NOTE | 2020-01-30 16:22 | PDOC PROGRESS REPORT ---
Subjective Progress Note for:: 01/30/20 Subjective:: Information obtained from patient with help of medical staff was translating at bedside. Patient denies shortness of breath. She felt well. She states that she fell but does not give much information on what happened. Denies dizziness or lightheadedness. Reason For Visit: UTI,HYPONATREMIA Physical Exam Vital Signs: Temp Pulse Resp BP Pulse Ox 98.2 F 70 21 H 131/61 H 100 01/30/20 07:27 01/30/20 14:00 01/30/20 07:27 01/30/20 07:27 01/30/20 07:27 Intake & Output 01/29/20 01/30/20 01/31/20 06:59 06:59 06:59 Intake Total 1650 250 Balance 1650 250 Weight 81.6 kg General appearance: PRESENT: no acute distress, cooperative Neck exam: ABSENT: JVD Respiratory exam: PRESENT: symmetrical, unlabored. ABSENT: tachypnea, wheezes Cardiovascular exam: PRESENT: RRR, +S1, +S2. ABSENT: tachycardia GI/Abdominal exam: PRESENT: soft. ABSENT: rebound, rigid, tenderness Neurological exam: PRESENT: alert, awake, oriented to person, oriented to place, oriented to time Results Laboratory Results: 01/30/20 07:53 01/30/20 07:53 01/29/20 01/29/20 01/29/20 15:00 15:00 17:19 WBC RBC Hgb Hct MCV MCH MCHC RDW Plt Count Seg Neutrophils % Sodium Potassium Chloride Carbon Dioxide Anion Gap BUN Creatinine Est GFR ( Amer) Glucose Serum Osmolality 254 L Calcium Total Bilirubin AST Alkaline Phosphatase Total Protein Albumin TSH 19.40 H Free T4 Urine Color YELLOW Urine Appearance SLIGHTLY-CLOUDY Urine pH 7.0 Ur Specific [place] 1.006 Urine Protein NEGATIVE Urine Glucose (UA) NEGATIVE Urine Ketones NEGATIVE Urine Blood SMALL H Urine RBC (Auto) 2 01/29/20 01/30/20 01/30/20 22:05 07:53 07:53 WBC 7.8 RBC 4.28 Hgb 13.7 Hct 38.9 MCV 91 MCH 31.9 MCHC 35.1 RDW 13.6 Plt Count 210 Seg Neutrophils % 85.1 H Sodium 128.5 L 133.8 L Potassium 3.2 L 3.7 Chloride 93 L 100 Carbon Dioxide 27 25 Anion Gap 9 9 BUN 10 9 Creatinine 0.66 0.64 Est GFR ( Amer) > 60 > 60 Glucose 104 94 Serum Osmolality Calcium 8.5 8.2 L Total Bilirubin 0.9 AST 54 H Alkaline Phosphatase 81 Total Protein 6.3 Albumin 3.7 TSH Free T4 Urine Color Urine Appearance Urine pH Ur Specific [place] Urine Protein Urine Glucose (UA) Urine Ketones Urine Blood Urine RBC (Auto) 01/30/20 07:53 WBC RBC Hgb Hct MCV MCH MCHC RDW Plt Count Seg Neutrophils % Sodium Potassium Chloride Carbon Dioxide Anion Gap BUN Creatinine Est GFR ( Amer) Glucose Serum Osmolality Calcium Total Bilirubin AST Alkaline Phosphatase Total Protein Albumin TSH Free T4 0.37 L Urine Color Urine Appearance Urine pH Ur Specific [place] Urine Protein Urine Glucose (UA) Urine Ketones Urine Blood Urine RBC (Auto) 01/29/20 01/29/20 01/30/20 15:00 15:00 07:53 Creatine Kinase 2405 H 1152 H Troponin I < 0.012 Impressions: Chest X-Ray 01/29/20 14:47 IMPRESSION: Cardiomegaly without pulmonary edema. Cervical Spine CT 01/29/20 17:01 IMPRESSION: CHRONIC DEGENERATIVE CHANGES. NO ACUTE FINDINGS. Head CT 01/29/20 17:01 IMPRESSION: NO ACUTE INTRACRANIAL FINDINGS. EVIDENCE OF ACUTE STROKE: NO. Pelvis X-Ray 01/29/20 17:01 IMPRESSION: No fracture identified. Assessment and Plan - Diagnosis (1) Hyponatremia Is this a current diagnosis for this admission?: Yes Plan: Likely secondary to uncontrolled hypothyroidism +/-dehydration Responding well to fluids but actually now overcorrected this morning. Normal saline held this morning. Started D5W this afternoon to slow down correction rate. We will check a BMP in a few hours. (2) Hypothyroidism Qualifiers: Hypothyroidism type: unspecified Qualified Code(s): E03.9 - Hypothyroidism, unspecified Is this a current diagnosis for this admission?: Yes Plan: Uncontrolled hypothyroidism. Increase levothyroxine from 0.1 to 0.125mg We will need to ensure that patient has been taking her Synthroid right away. Outpatient follow-up for repeat TFTs in 1 month (3) Multiple falls Is this a current diagnosis for this admission?: Yes Plan: Walked with PT OT (4) Rhabdomyolysis Qualifiers: Rhabdomyolysis type: traumatic Is this a current diagnosis for this admission?: Yes Plan: Possibly traumatic secondary to prolonged immobilization and falls. Hypothyroidism could also be playing a role here. Improving nicely with hydration. (5) UTI (urinary tract infection) Qualifiers: Urinary tract infection type: site unspecified Hematuria presence: without hematuria Qualified Code(s): N39.0 - Urinary tract infection, site not specified Is this a current diagnosis for this admission?: Yes Plan: Urine culture identification pending. Continue ceftriaxone day 2 of 3. (6) Acute respiratory failure with hypoxia Is this a current diagnosis for this admission?: Yes Plan: Seems to have resolved currently as patient is maintaining on room air this morning throughout encounter with adequate SPO2. Chest x-ray notes cardiomegaly but no lung infiltrates or edema. COVID-19 test is pending. - Time Time Spent with patient: 15-24 minutes Anticipated Discharge Disposition: Home, Self Care Anticipated Discharge Timeframe: within 36 hours
[2020-01-30] MEDS: AMLODIPINE BESYLATE 10 MG TABLET PO SCH (17:36)
[2020-01-30] MEDS: ATORVASTATIN CALCIUM 10 MG TABLET PO SCH (21:50)
[2020-01-30 22:18] LABS: ANION GAP 9 (5-19); BLOOD UREA NITROGEN 13 mg/dL (7-20); CALCIUM 8.7 mg/dL (8.4-10.2); CARBON DIOXIDE 23 mmol/L (22-30); CHLORIDE 101 mmol/L (98-107); GLUCOSE 136 mg/dL (75-110); POTASSIUM 3.5 mmol/L (3.6-5.0)
[2020-01-30] MEDS ORDERED: NORMAL SALINE 1000 ML 1,000 ML IV PRN (22:45)
[2020-01-31 05:21] LABS: ABSOLUTE EOSINOPHILS # (AUTO) 0.4 10^3/uL (0.0-0.6); ABSOLUTE LYMPHOCYTES (AUTO) 0.9 10^3/uL (0.5-4.7); ABSOLUTE MONOCYTES (AUTO) 0.7 10^3/uL (0.1-1.4); ABSOLUTE NEUT (AUTO) 4.8 10^3/uL (1.7-8.2); BASOPHILS % (AUTO) 0.6 % (0-2); EOSINOPHILS % (AUTO) 5.2 % (0-6); HEMATOCRIT 34.9 % (36.0-47.0); HEMOGLOBIN 12.4 g/dL (12.0-15.5); LYMPHOCYTES % (AUTO) 13.6 % (13-45); MEAN CORPUSCULAR HEMOGLOBIN 32.6 pg (27.0-33.4); MEAN CORPUSCULAR HGB CONC 35.6 g/dL (32.0-36.0); MEAN CORPUSCULAR VOLUME 92 fl (80-97); PLATELET COUNT 188 10^3/uL (150-450); RED CELL DISTRIBUTION WIDTH 13.9 % (11.5-14.0); SEGMENTED NEUTROPHILS % (AUTO) 70.6 % (42-78); TOTAL CELLS COUNTED % (AUTO) 100 %; WHITE BLOOD COUNT 6.8 10^3/uL (4.0-10.5)
[2020-01-31] MEDS: PANTOPRAZOLE SODIUM 20 MG TABLET.DR PO SCH (05:27)
[2020-01-31] MEDS: LEVOTHYROXINE SODIUM 0.025 MG TABLET PO SCH (05:27)
[2020-01-31] MEDS: LEVOTHYROXINE SODIUM 0.1 MG TABLET PO SCH (05:27)
[2020-01-31] MEDS: HEPARIN SOD (PORCINE) 5,000 UNIT/ML 1 ML VIAL SUBCUT SCH ×3 (05:27→22:05)
[2020-01-31 05:42] LABS: ALBUMIN 2.9 g/dL (3.5-5.0); ALKALINE PHOSPHATASE 60 U/L (38-126); ANION GAP 8 (5-19); ASPARTATE AMINO TRANSFERASE 38 U/L (14-36); BILIRUBIN,DIRECT 0.1 mg/dL (0.0-0.4); BILIRUBIN,TOTAL 0.6 mg/dL (0.2-1.3); BLOOD UREA NITROGEN 10 mg/dL (7-20); CALCIUM 7.3 mg/dL (8.4-10.2); CARBON DIOXIDE 20 mmol/L (22-30); CHLORIDE 105 mmol/L (98-107); CREATINE KINASE 647 U/L (30-135); GLUCOSE 182 mg/dL (75-110); TOTAL PROTEIN 5.3 g/dL (6.3-8.2)
[2020-01-31] MEDS ORDERED: LEVOTHYROXINE SODIUM 0.1 MG TABLET PO SCH (06:00)
[2020-01-31 06:02] LABS: POTASSIUM 2.8 mmol/L (3.6-5.0)
[2020-01-31] MEDS: POTASSI CL 20 MEQ/50 ML RIDER 20 MEQ/50 ML RTUPB IV SCH ×3 (06:39→10:57)
[2020-01-31] MEDS: INSULIN LISPRO 100 UNIT/ML 3 ML VIAL SUBCUT SCH ×4 (08:31→22:05)
[2020-01-31] MEDS: HYDROCHLOROTHIAZIDE 12.5 MG TABLET PO SCH (08:34)
--- NOTE | 2020-01-31 10:10 | PDOC PROGRESS REPORT ---
Subjective Progress Note for:: 01/31/20 Subjective:: 89 year old female, PMH of hypothyroidism, Asthma, T2DM, HTN who came to the ED due to unwitnessed fall. Patient speaks limited Setswana and Tagalog. She complains of generalized body aches for about 1 week and cough that is chronic. she denied any fever, SOB, urinary symptoms, nausea/vomiting or diarrhea. She cannot elaborate further on how she fell or when. Per ED history she was found by her daughter at home and apparently has been lying down there overnight. She has had frequent falls per daughter. In the ED, VS BP 120/56, HR 68, O2 sat 83% on RA improved with 2L NC. CT head and CXR was negative. CBC no increased WBC. UA showed positive nitrite and leukocyte esterase. CMP showed hyponatremia to 122, CK 2405. She was given IV fluids, ceftriaxone and was admitted. 01/[id number]-old female admitted with unwitnessed fall. COVID-19 is negative. Hyponatremia is improving. Potassium is 2.8 getting 60 mg of IV potassium. Comfortable in the chair communicating well not in distress. Reason For Visit: UTI,HYPONATREMIA Physical Exam Vital Signs: Temp Pulse Resp BP Pulse Ox 97.6 F 69 18 131/39 H 93 01/31/20 08:25 01/31/20 08:25 01/31/20 08:25 01/31/20 08:25 01/31/20 08:25 Intake & Output 01/30/20 01/31/20 02/01/20 06:59 06:59 06:59 Intake Total 1650 1680 48 Balance 1650 1680 48 Weight 81.6 kg 58.1 kg General appearance: PRESENT: no acute distress, well-developed Head exam: PRESENT: atraumatic Eye exam: PRESENT: PERRLA Ear exam: PRESENT: normal external ear exam Teeth exam: PRESENT: poor dentation Neck exam: ABSENT: carotid bruit, JVD, lymphadenopathy, thyromegaly Respiratory exam: PRESENT: clear to auscultation marko. ABSENT: rales, rhonchi, wheezes Cardiovascular exam: PRESENT: RRR. ABSENT: diastolic murmur, rubs, systolic murmur GI/Abdominal exam: PRESENT: normal bowel sounds, soft. ABSENT: distended, guarding, mass, organolmegaly, rebound, tenderness Rectal exam: PRESENT: deferred Extremities exam: PRESENT: full ROM. ABSENT: calf tenderness, clubbing, pedal edema Neurological exam: PRESENT: alert, awake, oriented to person, oriented to place, oriented to time, oriented to situation, CN II-XII grossly intact. ABSENT: motor sensory deficit Psychiatric exam: PRESENT: appropriate affect, normal mood. ABSENT: homicidal ideation, suicidal ideation Results Laboratory Results: 01/31/20 04:56 01/31/20 04:56 01/30/20 01/31/20 01/31/20 21:40 04:56 04:56 WBC 6.8 RBC 3.80 Hgb 12.4 Hct 34.9 L MCV 92 MCH 32.6 MCHC 35.6 RDW 13.9 Plt Count 188 Seg Neutrophils % 70.6 Sodium 133.4 L 133.3 L Potassium 3.5 L 2.8 L* Chloride 101 105 Carbon Dioxide 23 20 L Anion Gap 9 8 BUN 13 10 Creatinine 1.05 0.65 Est GFR ( Amer) > 60 > 60 Glucose 136 H 182 H Calcium 8.7 7.3 L Total Bilirubin 0.6 AST 38 H Alkaline Phosphatase 60 Total Protein 5.3 L Albumin 2.9 L 01/29/20 17:19 Catheterized Urine Urine Culture - Final Escherichia Coli 01/29/20 01/29/20 01/30/20 15:00 15:00 07:53 Creatine Kinase 2405 H 1152 H Troponin I < 0.012 01/31/20 04:56 Creatine Kinase 647 H Troponin I Impressions: Chest X-Ray 01/29/20 14:47 IMPRESSION: Cardiomegaly without pulmonary edema. Cervical Spine CT 01/29/20 17:01 IMPRESSION: CHRONIC DEGENERATIVE CHANGES. NO ACUTE FINDINGS. Head CT 01/29/20 17:01 IMPRESSION: NO ACUTE INTRACRANIAL FINDINGS. EVIDENCE OF ACUTE STROKE: NO. Pelvis X-Ray 01/29/20 17:01 IMPRESSION: No fracture identified. Assessment and Plan - Diagnosis (1) UTI (urinary tract infection) Qualifiers: Urinary tract infection type: site unspecified Hematuria presence: without hematuria Qualified Code(s): N39.0 - Urinary tract infection, site not specified Is this a current diagnosis for this admission?: Yes Plan: Urine culture identification pending. Continue ceftriaxone day 2 of 3. 01/31/2020-urine culture is growing E. coli. On ceftriaxone. Plan is to continue the IV antibiotic therapy at this time. (2) Rhabdomyolysis Qualifiers: Rhabdomyolysis type: traumatic Is this a current diagnosis for this admission?: Yes Plan: Possibly traumatic secondary to prolonged immobilization and falls. Hypothyroidism could also be playing a role here. Improving nicely with hydration. - unwitnessed fall has apparently been on the ground for several hours - previous falls - CK 2405, Crea normal, K 3.5 - will hydrate and repeat in the morning 01/31/2020-latest CK is 647. Rhabdomyolysis is resolving. Creatinine within normal limits. Serum potassium is 2.8 receiving 3 mEq of IV potassium. (3) Hyponatremia Is this a current diagnosis for this admission?: Yes Plan: Likely secondary to uncontrolled hypothyroidism +/-dehydration Responding well to fluids but actually now overcorrected this morning. Normal saline held this morning. Started D5W this afternoon to slow down correction rate. We will check a BMP in a few hours. 01/31/2020-serum sodium is 133 today. Close to normal. Asymptomatic. Plan is to discontinue IV fluids from today. Plan is to repeat the labs tomorrow. (4) Acute respiratory failure with hypoxia Is this a current diagnosis for this admission?: Yes Plan: Seems to have resolved currently as patient is maintaining on room air this morning throughout encounter with adequate SPO2. Chest x-ray notes cardiomegaly but no lung infiltrates or edema. COVID-19 test is pending. 01/31/2020-pulse ox this morning is 93% on room air. Chest x-ray indicated of of cardiomegaly, COVID-19 is negative. Acute respiratory failure with hypoxia resolved. (5) Multiple falls Is this a current diagnosis for this admission?: Yes Plan: Walked with PT OT (6) Hypokalemia Is this a current diagnosis for this admission?: Yes Plan: 01/31/2020-serum potassium is 2.8. To give 60 mg of IV potassium today. Plan is to repeat the labs tomorrow. - Time Anticipated Discharge Disposition: Home, Self Care Anticipated Discharge Timeframe: within 48 hours
[2020-01-31] MEDS: POTASSIUM CHLORIDE 10 MEQ TABLET.ER PO SCH (10:57)
[2020-01-31] MEDS: ASPIRIN 81 MG TABLET, ENT COATED PO SCH (10:58)
[2020-01-31] MEDS: LOSARTAN POTASSIUM 50 MG TABLET PO SCH (10:58)
[2020-01-31] MEDS: DOCUSATE SODIUM 100 MG CAPSULE PO SCH ×2 (10:58→17:09)
[2020-01-31] MEDS: CHOLECALCIFEROL (D3) 1,000 UNIT (25 MCG) TABLET PO SCH (10:58)
[2020-01-31] MEDS: ATENOLOL 50 MG TABLET PO SCH (10:58)
[2020-01-31] MEDS: CEFTRIAXONE 2 GM/D5W RTU 2 GM/50 ML RTUPB IV SCH (11:02)
[2020-01-31] MEDS: AMLODIPINE BESYLATE 10 MG TABLET PO SCH (17:09)
[2020-01-31 20:59] LABS: ANION GAP 12 (5-19); BLOOD UREA NITROGEN 9 mg/dL (7-20); CARBON DIOXIDE 21 mmol/L (22-30); CHLORIDE 103 mmol/L (98-107); GLUCOSE 155 mg/dL (75-110)
[2020-01-31] MEDS: ATORVASTATIN CALCIUM 10 MG TABLET PO SCH (22:05)
[2020-02-01] MEDS: PANTOPRAZOLE SODIUM 20 MG TABLET.DR PO SCH (05:50)
[2020-02-01] MEDS: HEPARIN SOD (PORCINE) 5,000 UNIT/ML 1 ML VIAL SUBCUT SCH (05:50)
[2020-02-01] MEDS: LEVOTHYROXINE SODIUM 0.1 MG TABLET PO SCH (05:50)
[2020-02-01] MEDS: LEVOTHYROXINE SODIUM 0.025 MG TABLET PO SCH (05:50)
[2020-02-01 07:10] LABS: ABSOLUTE BASOPHILS # (AUTO) 0.1 10^3/uL (0.0-0.2); ABSOLUTE EOSINOPHILS # (AUTO) 0.8 10^3/uL (0.0-0.6); ABSOLUTE LYMPHOCYTES (AUTO) 1.3 10^3/uL (0.5-4.7); ABSOLUTE MONOCYTES (AUTO) 0.7 10^3/uL (0.1-1.4); ABSOLUTE NEUT (AUTO) 6.3 10^3/uL (1.7-8.2); BASOPHILS % (AUTO) 0.8 % (0-2); EOSINOPHILS % (AUTO) 8.3 % (0-6); HEMATOCRIT 38.5 % (36.0-47.0); HEMOGLOBIN 13.4 g/dL (12.0-15.5); LYMPHOCYTES % (AUTO) 14.2 % (13-45); MEAN CORPUSCULAR HGB CONC 34.8 g/dL (32.0-36.0); MEAN CORPUSCULAR VOLUME 92 fl (80-97); MONOCYTES % (AUTO) 7.9 % (3-13); PLATELET COUNT 222 10^3/uL (150-450); RED BLOOD COUNT 4.18 10^6/uL (3.72-5.28); RED CELL DISTRIBUTION WIDTH 13.5 % (11.5-14.0); SEGMENTED NEUTROPHILS % (AUTO) 68.8 % (42-78); TOTAL CELLS COUNTED % (AUTO) 100 %; WHITE BLOOD COUNT 9.1 10^3/uL (4.0-10.5)
[2020-02-01 07:33] LABS: ALBUMIN 3.8 g/dL (3.5-5.0); ALKALINE PHOSPHATASE 80 U/L (38-126); ANION GAP 8 (5-19); ASPARTATE AMINO TRANSFERASE 32 U/L (14-36); BILIRUBIN,DIRECT 0.2 mg/dL (0.0-0.4); BILIRUBIN,TOTAL 0.5 mg/dL (0.2-1.3); BLOOD UREA NITROGEN 12 mg/dL (7-20); CARBON DIOXIDE 24 mmol/L (22-30); CHLORIDE 102 mmol/L (98-107); GLUCOSE 125 mg/dL (75-110); POTASSIUM 3.6 mmol/L (3.6-5.0); TOTAL PROTEIN 6.3 g/dL (6.3-8.2)
[2020-02-01] MEDS ORDERED: INFLUENZA QUAD (6MOS+) 2020-21 VAC 0.5 ML SYR IM ONE (08:00)
[2020-02-01] MEDS: INSULIN LISPRO 100 UNIT/ML 3 ML VIAL SUBCUT SCH ×2 (08:47→11:07)
[2020-02-01] MEDS: CHOLECALCIFEROL (D3) 1,000 UNIT (25 MCG) TABLET PO SCH (09:08)
[2020-02-01] MEDS: ATENOLOL 50 MG TABLET PO SCH (09:08)
[2020-02-01] MEDS: HYDROCHLOROTHIAZIDE 12.5 MG TABLET PO SCH (09:08)
[2020-02-01] MEDS: LOSARTAN POTASSIUM 50 MG TABLET PO SCH (09:08)
[2020-02-01] MEDS: POTASSIUM CHLORIDE 10 MEQ TABLET.ER PO SCH (09:08)
[2020-02-01] MEDS: ASPIRIN 81 MG TABLET, ENT COATED PO SCH (09:08)
[2020-02-01] MEDS: DOCUSATE SODIUM 100 MG CAPSULE PO SCH (09:08)
[2020-02-01] MEDS: CEFTRIAXONE 2 GM/D5W RTU 2 GM/50 ML RTUPB IV SCH (09:09)
--- NOTE | 2020-02-01 10:50 | PDOC DISCHARGE SUMMARY ---
Impression - Admit/DC Date/PCP Admission Date/Primary Care Provider: 01/29/20 20:28 AUGUSTUS GARCES MD Discharge Date: 02/01/20 - Discharge Diagnosis (1) UTI (urinary tract infection) Is this a current diagnosis for this admission?: Yes (2) Rhabdomyolysis Is this a current diagnosis for this admission?: Yes (3) Hyponatremia Is this a current diagnosis for this admission?: Yes (4) Acute respiratory failure with hypoxia Is this a current diagnosis for this admission?: Yes (5) Multiple falls Is this a current diagnosis for this admission?: Yes (6) Hypokalemia Is this a current diagnosis for this admission?: Yes - Assessment Summary: [id number]-ldcy-old female with multiple medical problems admitted with hyperkalemia which was resolved acute respiratory failure with hypoxia resolved pulse ox is 96% room air. Found to have UTI growing E. coli sensitive to nitrofurantoin. Prescription was given for nitrofurantoin 100 mg p.o. twice daily for 5 days. Patient is advised to follow-up with PCP next week. - Additional Information Discharge Diet: Diabetic Discharge Activity: Activity As Tolerated Referrals: MATHEW DAVIDSON MD [[facility]AFF] - Follow up as needed Prescriptions: Nitrofurantoin Macrocrystal [Nitrofurantoin] 100 mg PO BID 5 Days #10 capsule Home Medications: Albuterol Sulfate [Proair HFA Inhalation Aerosol 8.5 gm MDI] 2 puff IH Q6HP PRN 10/08/18 Amlodipine Besylate [Norvasc 10 mg Tablet] 10 mg PO QPM 10/08/18 Atenolol [Tenormin] 25 mg PO QAM 10/08/18 Azelastine/Fluticasone [Dymista Nasal [place]] 1 spray NASL BID 10/08/18 Furosemide [Lasix 20 mg Tablet] 20 mg PO .TWICE A WEEK 10/08/18 Hydrochlorothiazide [Hydrodiuril 12.5 mg Tablet] 12.5 mg PO QAM 10/08/18 Irbesartan [Avapro] 150 mg PO DAILY 10/08/18 Levothyroxine Sodium 100 mcg PO Q6AM 10/08/18 Metformin HCl [Glucophage 500 mg Tablet] 500 mg PO BIDBS 10/08/18 Omeprazole 20 mg PO DAILY 10/08/18 Potassium Chloride [Klor-Con M10] 10 mg PO DAILY 10/08/18 Aspirin [Ecotrin 81 mg EC Tablet] 81 mg PO DAILY 01/30/20 Atorvastatin Calcium [Lipitor 10 mg Tablet] 10 mg PO QHS 01/30/20 Cholecalciferol (Vitamin D3) [Vitamin D3 1000 Unit Tablet] 1,000 unit PO DAILY 01/30/20 Fexofenadine HCl [Fifi Allergy] 180 mg PO DAILY 01/30/20 Nitroglycerin [Nitrostat 0.4 mg (1/150 Gr) Tabs 25/Bottle] 1 tab SL Q5MP PRN 01/30/20 Nitrofurantoin Macrocrystal [Nitrofurantoin] 100 mg PO BID 5 Days #10 capsule 02/01/20 History of Present Illiness History of Present Illness: ROXI PUCKETT is a 89 year old female 89 year old female, PMH of hypothyroidism, Asthma, T2DM, HTN who came to the ED due to unwitnessed fall. Patient speaks limited Kyrgyz and Tagalog. She complains of generalized body aches for about 1 week and cough that is chronic. she denied any fever, SOB, urinary symptoms, nausea/vomiting or diarrhea. She cannot elaborate further on how she fell or when. Per ED history she was found by her daughter at home and apparently has been lying down there overnight. She has had frequent falls per daughter. In the ED, VS BP 120/56, HR 68, O2 sat 83% on RA improved with 2L NC. CT head and CXR was negative. CBC no increased WBC. UA showed positive nitrite and leukocyte esterase. CMP showed hyponatremia to 122, CK 2405. She was given IV fluids, ceftriaxone and was admitted. Hospital Course Hospital Course: 89-year-old female with multiple medical problems admitted with hyperkalemia resolved, acute on chronic respiratory failure resolved, UTI treated with IV antibiotic therapy going home on nitrofurantoin 100 mg p.o. twice daily for 5 days. Afebrile. Blood cultures are negative. Urine culture is growing E. coli. Physical Exam Vital Signs: Temp Pulse Resp BP Pulse Ox 98.2 F 80 16 133/54 H 93 02/01/20 10:00 02/01/20 09:25 02/01/20 09:25 02/01/20 07:45 02/01/20 09:25 Intake & Output 01/31/20 02/01/20 02/02/20 06:59 06:59 06:59 Intake Total 1680 1219 50 Balance 1680 1219 50 Weight 58.1 kg 64.8 kg General appearance: PRESENT: no acute distress, cooperative Head exam: PRESENT: atraumatic Eye exam: PRESENT: PERRLA Mouth exam: PRESENT: moist, tongue midline Teeth exam: PRESENT: poor dentation Neck exam: ABSENT: carotid bruit, JVD, lymphadenopathy, thyromegaly Respiratory exam: PRESENT: decreased breath sounds Cardiovascular exam: PRESENT: RRR. ABSENT: diastolic murmur, rubs, systolic murmur GI/Abdominal exam: PRESENT: normal bowel sounds, soft. ABSENT: distended, guarding, mass, organolmegaly, rebound, tenderness Rectal exam: PRESENT: deferred Extremities exam: PRESENT: full ROM. ABSENT: calf tenderness, clubbing, pedal edema Neurological exam: PRESENT: alert, awake, oriented to person, oriented to place, oriented to time, oriented to situation, CN II-XII grossly intact. ABSENT: motor sensory deficit Psychiatric exam: PRESENT: appropriate affect, normal mood. ABSENT: homicidal ideation, suicidal ideation Results Laboratory Results: WBC 9.1 10^3/uL (4.0-10.5) 02/01/20 06:46 RBC 4.18 10^6/uL (3.72-5.28) 02/01/20 06:46 Hgb 13.4 g/dL (12.0-15.5) 02/01/20 06:46 Hct 38.5 % (36.0-47.0) 02/01/20 06:46 MCV 92 fl (80-97) 02/01/20 06:46 MCH 32.0 pg (27.0-33.4) 02/01/20 06:46 MCHC 34.8 g/dL (32.0-36.0) 02/01/20 06:46 RDW 13.5 % (11.5-14.0) 02/01/20 06:46 Plt Count 222 10^3/uL (150-450) 02/01/20 06:46 Lymph % (Auto) 14.2 % (13-45) 02/01/20 06:46 [place] % (Auto) 7.9 % (3-13) 02/01/20 06:46 Eos % (Auto) 8.3 % (0-6) H 02/01/20 06:46 Baso % (Auto) 0.8 % (0-2) 02/01/20 06:46 Absolute Neuts (auto) 6.3 10^3/uL (1.7-8.2) 02/01/20 06:46 Absolute Lymphs (auto) 1.3 10^3/uL (0.5-4.7) 02/01/20 06:46 Absolute Monos (auto) 0.7 10^3/uL (0.1-1.4) 02/01/20 06:46 Absolute Eos (auto) 0.8 10^3/uL (0.0-0.6) H 02/01/20 06:46 Absolute Basos (auto) 0.1 10^3/uL (0.0-0.2) 02/01/20 06:46 Seg Neutrophils % 68.8 % (42-78) 02/01/20 06:46 Sodium 134.3 mmol/L (137-145) L 02/01/20 06:46 Potassium 3.6 mmol/L (3.6-5.0) 02/01/20 06:46 Chloride 102 mmol/L (98-107) 02/01/20 06:46 Carbon Dioxide 24 mmol/L (22-30) 02/01/20 06:46 Anion Gap 8 (5-19) 02/01/20 06:46 BUN 12 mg/dL (7-20) 02/01/20 06:46 Creatinine 0.70 mg/dL (0.52-1.25) 02/01/20 06:46 Est GFR ( Amer) > 60 (>60) 02/01/20 06:46 Est GFR (MDRD) Non-Af > 60 (>60) 02/01/20 06:46 Glucose 125 mg/dL (75-110) H 02/01/20 06:46 POC Glucose 147 mg/dL (70-110) H 02/01/20 05:39 Serum Osmolality 254 mOsm/kg (275-301) L 01/29/20 15:00 Lactic Acid 1.4 mmol/L (0.7-2.1) 01/29/20 15:00 Calcium 9.0 mg/dL (8.4-10.2) 02/01/20 06:46 Magnesium 2.1 mg/dL (1.6-2.3) 02/01/20 06:46 Total Bilirubin 0.5 mg/dL (0.2-1.3) 02/01/20 06:46 Direct Bilirubin 0.2 mg/dL (0.0-0.4) 02/01/20 06:46 Neonat Total Bilirubin Not Reportable 02/01/20 06:46 Neonat Direct Bilirubin Not Reportable 02/01/20 06:46 Neonat Indirect Bili Not Reportable 02/01/20 06:46 AST 32 U/L (14-36) 02/01/20 06:46 ALT 24 U/L (<35) 02/01/20 06:46 Alkaline Phosphatase 80 U/L (38-126) 02/01/20 06:46 Creatine Kinase 647 U/L (30-135) H 01/31/20 04:56 Troponin I < 0.012 ng/mL 01/29/20 15:00 Total Protein 6.3 g/dL (6.3-8.2) 02/01/20 06:46 Albumin 3.8 g/dL (3.5-5.0) 02/01/20 06:46 TSH 19.40 uIU/mL (0.47-4.68) H 01/29/20 15:00 Free T4 0.37 ng/dL (0.78-2.19) L 01/30/20 07:53 Urine Color YELLOW 01/29/20 17:19 Urine Appearance SLIGHTLY-CLOUDY 01/29/20 17:19 Urine pH 7.0 (5.0-9.0) 01/29/20 17:19 Ur Specific [place] 1.006 01/29/20 17:19 Urine Protein NEGATIVE mg/dL (NEGATIVE) 01/29/20 17:19 Urine Glucose (UA) NEGATIVE mg/dL (NEGATIVE) 01/29/20 17:19 Urine Ketones NEGATIVE mg/dL (NEGATIVE) 01/29/20 17:19 Urine Blood SMALL (NEGATIVE) H 01/29/20 17:19 Urine Nitrite (Reflex) POSITIVE (NEGATIVE) H 01/29/20 17:19 Urine Bilirubin NEGATIVE (NEGATIVE) 01/29/20 17:19 Urine Urobilinogen NEGATIVE mg/dL (<2.0) 01/29/20 17:19 Leukocyte Esterase Rfl LARGE (NEGATIVE) H 01/29/20 17:19 Urine RBC (Auto) 2 /HPF 01/29/20 17:19 Urine Bacteria (Auto) 1+ /HPF 01/29/20 17:19 Urine WBC (Reflex) 34 /HPF 01/29/20 17:19 Squamous Epi Cells Auto <1 /HPF 01/29/20 17:19 Urine Ascorbic Acid NEGATIVE (NEGATIVE) 01/29/20 17:19 COVID-19 Source See comment 01/29/20 17:27 COVID-19 (DORA) Not Detected (Not Detect) 01/29/20 17:27 Influenza A (Rapid) NEGATIVE (NEGATIVE) 01/29/20 15:45 Influenza B (Rapid) NEGATIVE (NEGATIVE) 01/29/20 15:45 01/29/20 15:00 Troponin I < 0.012 Impressions: Chest X-Ray 01/29/20 14:47 IMPRESSION: Cardiomegaly without pulmonary edema. Cervical Spine CT 01/29/20 17:01 IMPRESSION: CHRONIC DEGENERATIVE CHANGES. NO ACUTE FINDINGS. Head CT 01/29/20 17:01 IMPRESSION: NO ACUTE INTRACRANIAL FINDINGS. EVIDENCE OF ACUTE STROKE: NO. Pelvis X-Ray 01/29/20 17:01 IMPRESSION: No fracture identified. Plan Goals: Patient is given a prescription for nitrofurantoin 100 mg p.o. twice daily for 5 days and advised to follow-up with next week. Time Spent: Greater than 30 Minutes Stroke Is this a Stroke Patient?: No Acute Heart Failure Is this a Heart Failure Patient?: No
[2020-02-01 11:01] VITALS: BP 129/66
== END 2020-02-01 12:56 | disposition home or self-care (01) | DRG 564 ==
LOC: ER 14:17 → EH 20:28 → 3W 01-30 00:40 → 4S 01-31 16:22
PROVIDERS: ADMIT Internal Medicine; ATTEND Internal Medicine
DX: T79.6XXA Traumatic ischemia of muscle, initial encounter (principal); J96.01 Acute respiratory failure with hypoxia; N39.0 Urinary tract infection, site not specified; E87.1 Hypo-osmolality and hyponatremia; E87.6 Hypokalemia; E78.00 Pure hypercholesterolemia, unspecified; I10 Essential (primary) hypertension; E11.9 Type 2 diabetes mellitus without complications; J45.909 Unspecified asthma, uncomplicated; E03.9 Hypothyroidism, unspecified; Z20.818 Contact with and (suspected) exposure to other bacterial communicable diseases; E78.5 Hyperlipidemia, unspecified; B96.20 Unspecified Escherichia coli [E. coli] as the cause of diseases classified elsewhere; W19.XXXA Unspecified fall, initial encounter; Y92.239 Unspecified place in hospital as the place of occurrence of the external cause; R29.6 Repeated falls; Z91.81 History of falling; Z83.3 Family history of diabetes mellitus; Z82.49 Family history of ischemic heart disease and other diseases of the circulatory system; Z79.02 Long term (current) use of antithrombotics/antiplatelets; Z79.84 Long term (current) use of oral hypoglycemic drugs; Z79.51 Long term (current) use of inhaled steroids; Z79.52 Long term (current) use of systemic steroids; Z23 Encounter for immunization
CPT/HCPCS: 36415; 70450; 71045; 72125; 72170; 80053; 81001; 82550; 82962; 83605; 83735; 83930; 84439; 84443; 84484; 85025; 87040; 87086; 87088; 87186; 87635; 87804; 90471; 90686; 93005; 93010; 94640; 96361; 96365; 99285; C9803; G0008; J0696; J1644; J1815; J3480; J3490; J7030; J7040; J7060

== ENCOUNTER → 2020-03-10 | Outpatient (CLI) | payer MEDICARE, MEDICAID ==
--- NOTE | 2020-03-11 10:44 | RADIOLOGY REPORT (SQ) ---
EXAM DESCRIPTION: T SPINE AP/LAT IMAGES COMPLETED DATE/TIME: 03/10/2020 4:33 pm REASON FOR STUDY: PAIN IN THORACIC SPINE M54.6 PAIN IN THORACIC SPINE COMPARISON: None. NUMBER OF VIEWS: Two views. TECHNIQUE: AP and lateral radiographic images acquired of the thoracic spine. LIMITATIONS: None. FINDINGS: MINERALIZATION: Normal. ALIGNMENT: Minimal scoliosis. VERTEBRAE: No fracture or bone lesion. Maintained height, normal segmentation. DISCS: No significant loss of height or significant narrowing. No large osteophytes. HARDWARE: None in the spine. MEDIASTINUM AND SOFT TISSUES: Normal heart size and aortic contour. No soft tissue abnormality. VISUALIZED LUNG INGRAM: Clear. OTHER: No other significant finding. IMPRESSION: Minimal scoliosis. No acute finding. TECHNICAL DOCUMENTATION: JOB ID: [id number] [employer]- All Rights Reserved Reading location - IP/workstation name: [email or web address]
== END ==
LOC: OD 16:14
PROVIDERS: ATTEND Internal Medicine
DX: M54.6 Pain in thoracic spine (principal)
CPT/HCPCS: 72070